=== PATIENT | male | born 1980 | race Caucasian/White ===

== ENCOUNTER 2017-07-15 21:17 | Inpatient (IN) | payer OTHER ==
[2017-07-15 22:04] VITALS: BMI 23.3
--- NOTE | 2017-07-15 22:11 | HP ---
CIWA Score - CIWA Score Nausea/Vomitin-Mild Nausea/No Vomiting Muscle Tremors: 4-Moderate,w/Arms Extend Anxiety: 4-Mod. Anxious/Guarded Agitation: 4-Moderately Restless Paroxysmal Sweats: 1-Minimal Palms Moist Orientation: 1-Uncertain about Date Tacttile Disturbances: 0-None Auditory Disturbances: 0-None Visual Disturbances: 0-None Headache: 1-Very Mild CIWA-Ar Total Score: 16 Admission ROS BHS - HPI Chief Complaint: WITHDRAWAL SX Allergies/Adverse Reactions: Allergies Allergy/AdvReac Type Severity Reaction Status Date / Time Fish Containing Products AdvReac Verified 07/15/17 22:11 History of Present Illness: 37 YEARS OLD MALE WITH LONG HISTORY OF ALCOHOL COCAINE NICOTINE DEPENDENCE HAS ASTHMA, RIGHT EYE BLINDNESS, AND DEPRESSION IS ADMITTED TO DETOX Exam Limitations: No Limitations - Ebola screening Have you traveled outside of the country in the last 21 days: No Have you had contact with anyone from an Ebola affected area: No Have you been sick,other than usual withdrawal symptoms: No Do you have a fever: No - Review of Systems Constitutional: Loss of Appetite, Changes in sleep, Unintentional Wgt. Loss, Unexplained wgt Loss EENT: reports: Blurred Vision (RIGHT EYE BLIDNESS) Respiratory: reports: No Symptoms reported, SOB with Exertion Cardiac: reports: No Symptoms Reported GI: reports: Nausea, Poor Appetite, Poor Fluid Intake, Indigestion, Abdominal cramping : reports: No Symptoms Reported Musculoskeletal: reports: Back Pain, Joint Pain, Muscle Pain, Neck Pain Integumentary: reports: Change in Color (IV COCAINE BOTH ARMS) Neuro: reports: Tremors Endocrine: reports: No Symptoms Reported Hematology: reports: No Symptoms Reported Psychiatric: reports: Judgement Intact, Anxious, Depressed Other Systems: Reviewed and Negative Patient History - Patient Medical History Hx Anemia: No Hx Asthma: Yes Hx Chronic Obstructive Pulmonary Disease (COPD): No Hx Cancer: No Hx Cardiac Disorders: No Hx Congestive Heart Failure: No Hx Hypertension: No Hx Hypercholesterolemia: No Hx Pacemaker: No HX Cerebrovascular Accident: No Hx Seizures: No Hx Dementia: No Hx Diabetes: No Hx Gastrointestinal Disorders: No Hx Liver Disease: No Hx Genitourinary Disorders: No Hx Sexually Transmitted Disorders: No Hx Renal Disease (ESRD): No Hx Thyroid Disease: No Hx Human Immunodeficiency Virus (HIV): No Hx Hepatitis C: Yes Hx Depression: Yes Hx Suicide Attempt: No Hx Bipolar Disorder: No Hx Schizophrenia: No - Patient Surgical History Past Surgical History: Yes Hx Neurologic Surgery: No Hx Cataract Extraction: No Hx Cardiac Surgery: No Hx Lung Surgery: No Hx Breast Surgery: No Hx Breast Biopsy: No Hx Abdominal Surgery: Yes (2010) Hx Appendectomy: Yes (2011) Hx Cholecystectomy: No Hx Genitourinary Surgery: No Hx Orthopedic Surgery: No Anesthesia Reaction: No - PPD History Previous Implant?: Yes Documented Results: Negative w/o proof Implanted On Prior R Admission?: No PPD to be Administered?: Yes - Smoking Cessation Smoking history: Current every day smoker Have you smoked in the past 12 months: Yes Aproximately how many cigarettes per day: 40 Cigars Per Day: 0 Hx Chewing Tobacco Use: No Initiated information on smoking cessation: Yes 'Breaking Loose' booklet given: 07/15/17 - Substance & Tx. History Hx Alcohol Use: Yes Hx Substance Use: Yes Substance Use Type: Alcohol, Cocaine, Heroin Hx Substance Use Treatment: Yes (2015) - Substances Abused Alcohol Route: Oral Frequency: Daily Amount used: [id number] Age of first use: 16 Date of Last Use: 07/14/17 Cocaine Route: Smoking Frequency: Daily Amount used: 200$ Age of first use: 31 Date of Last Use: 07/15/17 Family Disease History - Family Disease History Family Disease History: Diabetes: Father (), Brother, Sister, Heart Disease: Father, Mother, Other: Father Admission Physical Exam BHS - Vital Signs Vital Signs: Vital Signs - 24 hr 07/15/17 22:02 Temperature 97.0 F L Pulse Rate 55 L Respiratory 20 Rate Blood Pressure 109/61 - Physical General Appearance: Yes: Appropriately Dressed, Mild Distress, Thin, Tremorous, Irritable, Sweating, Anxious HEENTM: Yes: Hearing grossly Normal, Normal ENT Inspection, Normocephalic, Normal Voice Respiratory: Yes: Chest Non-Tender, Lungs Clear, Normal Breath Sounds, No Respiratory Distress, No Accessory Muscle Use Neck: Yes: Supple, Trachea in good position Breast: Yes: Breasts Symetrical Cardiology: Yes: Regular Rhythm, S1, S2, Bradycardia Abdominal: Yes: Non Tender, Soft, Decreased BS Genitourinary: Yes: Within Normal Limits Back: Yes: Normal Inspection Musculoskeletal: Yes: full range of Motion, Gait Steady, Back pain, Muscle Pain Extremities: Yes: Normal Inspection, Normal Range of Motion, Non-Tender, Tremors Neurological: Yes: Alert, Motor Strength 5/5, Normal Response, Depressed Affect Integumentary: Yes: Warm, Track [place] (BOTH ELBOWS IV COCAINE) Lymphatic: Yes: Within Normal Limits - Diagnostic (1) Alcohol dependence with uncomplicated withdrawal Current Visit: Yes Status: Acute (2) Cocaine dependence, uncomplicated Current Visit: Yes Status: Chronic (3) Asthma Current Visit: Yes Status: Chronic Qualifiers: Asthma severity: mild Asthma persistence: intermittent Asthma complication type: with status asthmaticus Qualified Code(s): J45.22 - Mild intermittent asthma with status asthmaticus; J45.22 - Mild intermittent asthma with status asthmaticus; J45.22 - Mild intermittent asthma with status asthmaticus (4) Nicotine dependence Current Visit: Yes Status: Acute Qualifiers: Nicotine product type: cigarettes Substance use status: in withdrawal Qualified Code(s): F17.213 - Nicotine dependence, cigarettes, with withdrawal; F17.213 - Nicotine dependence, cigarettes, with withdrawal (5) Weight loss Current Visit: Yes Status: Acute (6) GERD (gastroesophageal reflux disease) Current Visit: Yes Status: Chronic Qualifiers: Esophagitis presence: without esophagitis Qualified Code(s): K21.9 - Gastro-esophageal reflux disease without esophagitis; K21.9 - Gastro- esophageal reflux disease without esophagitis; K21.9 - Gastro-esophageal reflux disease without esophagitis (7) Hepatitis C carrier Current Visit: Yes Status: Chronic (8) Chronic back pain Current Visit: Yes Status: Chronic Qualifiers: Back pain location: low back pain Back pain laterality: bilateral Sciatica presence: without sciatica Qualified Code(s): M54.5 - Low back pain; M54.5 - Low back pain; G89.29 - Other chronic pain; G89.29 - Other chronic pain (9) Depression (emotion) Current Visit: Yes Status: Suspected Qualifiers: Depression Type: dysthymia Qualified Code(s): F34.1 - Dysthymic disorder; F34.1 - Dysthymic disorder; F34.1 - Dysthymic disorder Cleared for Admission [facility] - Detox or Rehab [facility] Level of Care: Medically Managed Detox Regimen/Protocol: Librium [facility] Breath Alcohol Content Breath Alcohol Content: 0 Urine Drug Screen - Results Drug Screen Negative: No Urine Drug Screen Results: FELIX-Cocaine, MTD-Methadone
[2017-07-15] MEDS ORDERED: diphenhydrAMINE HCL 50 MG CAPSULE PO PRN (22:22)
[2017-07-15] MEDS ORDERED: LOPERAMIDE HCL 2 MG CAPSULE PO PRN (22:22)
[2017-07-15] MEDS ORDERED: P-EPHED 60MG/TRIPROLIDI 2.5MG TABLET PO PRN (22:22)
[2017-07-15] MEDS ORDERED: ACETAMINOPHEN 325 MG TABLET (FP) PO PRN (22:22)
[2017-07-15] MEDS ORDERED: NICOTINE POLACRILEX 4 MG GUM BC PRN (22:22)
[2017-07-15] MEDS ORDERED: MAGNESIUM CITRATE 300 ML BOTTLE PO PRN (22:22)
[2017-07-15] MEDS ORDERED: MENTHOL/PHENOL 1 EACH UD MM PRN (22:22)
[2017-07-15] MEDS ORDERED: chlordiazePOXIDE HCL 25 MG CAPSULE PO PRN (22:22)
[2017-07-15] MEDS ORDERED: MAGNESIUM HYDROX 2400MG/30ML ORAL SUSPENSION 30 ML CUP PO PRN (22:22)
[2017-07-15] MEDS ORDERED: MAG HYDROX/AL HYDROX/SIMETH 30 ML UNIT-DOSE CUP PO PRN (22:22)
[2017-07-15] MEDS ORDERED: guaiFENesin/D-METHORPHAN HB 10 ML UNIT-DOSE CUPS PO PRN (22:22)
[2017-07-15] MEDS ORDERED: METHOCARBAMOL 500 MG TABLET PO PRN (22:26)
[2017-07-15] MEDS ORDERED: ALBUTEROL SO4 18 GM HFA INHALER IH PRN (22:26)
[2017-07-15] MEDS: chlordiazePOXIDE HCL 25 MG CAPSULE PO SCH (23:41)
[2017-07-15] MEDS: LIDOCAINE PATCH REMOVAL MC SCH (23:43)
[2017-07-16] MEDS: chlordiazePOXIDE HCL 25 MG CAPSULE PO SCH ×4 (05:38→23:34)
[2017-07-16] MEDS ORDERED: METHADONE HCL 10 MG TABLET PO SCH (09:00)
[2017-07-16 09:35] LABS: MCHC 33.5 g/dl (32.0-35.9); MEAN CELL VOLUME 98.2 fl (80-96); MEAN PLT VOLUME 7.7 fl (7.5-11.1); PLATELET COUNT 190 K/MM3 (134-434); RDW 14.1 % (11.9-15.9); WHITE BLOOD COUNT 8.4 K/mm3 (4.0-10.0)
[2017-07-16] MEDS ORDERED: METHADONE HCL 10 MG TABLET ONE (09:54)
[2017-07-16] MEDS ORDERED: METHADONE HCL 40 MG DISPERSABLE TABLET ONE (09:55)
[2017-07-16 09:56] LABS: ALBUMIN 3.3 g/dl (3.4-5.0); ALK PHOS 52 U/L (45-117); ANION GAP 4 (8-16); BILIRUBIN,TOTAL 0.4 mg/dL (0.2-1.0); CALCIUM 8.2 mg/dL (8.5-10.1); CO2 32 mmol/L (21-32); GLUCOSE,RANDOM 112 mg/dL (74-106); SGOT/AST 18 U/L (15-37); SGPT/ALT 24 U/L (12-78); TOT PROT 6.3 g/dl (6.4-8.2)
[2017-07-16] MEDS: RANITIDINE HCL 150 MG TABLET (FP) PO SCH ×2 (10:43→23:35)
[2017-07-16] MEDS: PRENATAL VITAMINS W/ FOLIC ACID TABLET (FP) PO SCH (10:43)
[2017-07-16] MEDS: NICOTINE 21 MG/24 HOURS TOPICAL PATCH TD SCH (10:44)
[2017-07-16] MEDS: METHADONE 40 MG, METHADONE 20 MG PO SCH (10:44)
[2017-07-16] MEDS: LIDOCAINE 5% TOPICAL PATCH TP SCH (10:45)
[2017-07-16 11:40] LABS: HIV 1 & 2 AB NEGATIVE; HIV 1 AGp24 NEGATIVE
--- NOTE | 2017-07-16 11:51 | EKG ---
Test Reason : Blood Pressure : / mmHG Vent. Rate : 053 BPM Atrial Rate : 053 BPM P-R Int : 156 ms QRS Dur : 108 ms QT Int : 466 ms P-R-T Axes : 052 008 027 degrees QTc Int : 437 ms SINUS BRADYCARDIA OTHERWISE NORMAL ECG NO PREVIOUS ECGS AVAILABLE Confirmed by LEVI VARNER, ITZEL ([id number]) on 07/16/2017 11:51:20 AM Referred By: Confirmed By:ITZEL SIMS MD
--- NOTE | 2017-07-16 11:52 | CONSULT ---
[facility] Psychiatric Consult - Data Date of interview: 07/16/17 Admission source: [facility] Identifying data: Mr Medina is a 37 years old single male, fatherof a 7 years old daughter, unemployed on SSI, homeless Substance Abuse History: Reports history of alcohol and cocaine use. He started drinking alcohol at age 16 and smoking crack cocaine at 31, consumes 2 fifths of vodka and $200 worth of crack cocaine daily. Last drank alcohol on 07/14/17 & smoked crack cocaine on 07/15/17 Medical History: Significant for Asthma, Hep C, blindness right eye and history of surgery for removal of appendix. smokes cigarettes 2ppd Psychiatric History: Denies history of previous psychiatric treatment Physical/Sexual Abuse/Trauma History: Denies history of verbal, physical and sexual abuse as well as DV relationship Additional Comment: Denies criminal history Mental Status Exam - Mental Status Exam Alert and Oriented to: Time, Place, Person Cognitive Function: Fair Patient Appearance: Well Groomed Mood: Hopeful, Euthymic Affect: Appropriate Patient Behavior: Sedated (mildly), Cooperative Speech Pattern: Clear Voice Loudness: Normal Thought Process: Intact, Goal Oriented Thought Disorder: Not Present Hallucinations: Denies Suicidal Ideation: Denies Homicidal Ideation: Denies Insight/Judgement: Poor Sleep: Fair Appetite: Good Muscle strength/Tone: Normal Gait/Station: Normal Psychiatric Findings - Problem List ([place] 1, 2,3) (1) Alcohol dependence with uncomplicated withdrawal Current Visit: Yes Status: Acute (2) Cocaine dependence, uncomplicated Current Visit: Yes Status: Chronic (3) Nicotine dependence Current Visit: Yes Status: Acute Qualifiers: Nicotine product type: cigarettes Substance use status: in withdrawal Qualified Code(s): F17.213 - Nicotine dependence, cigarettes, with withdrawal; F17.213 - Nicotine dependence, cigarettes, with withdrawal (4) Blind right eye Current Visit: Yes Status: Acute (5) Asthma Current Visit: Yes Status: Chronic Qualifiers: Asthma severity: mild Asthma persistence: intermittent Asthma complication type: with status asthmaticus Qualified Code(s): J45.22 - Mild intermittent asthma with status asthmaticus; J45.22 - Mild intermittent asthma with status asthmaticus; J45.22 - Mild intermittent asthma with status asthmaticus (6) Chronic back pain Current Visit: Yes Status: Chronic Qualifiers: Back pain location: low back pain Back pain laterality: bilateral Sciatica presence: without sciatica Qualified Code(s): M54.5 - Low back pain; M54.5 - Low back pain; G89.29 - Other chronic pain; G89.29 - Other chronic pain (7) GERD (gastroesophageal reflux disease) Current Visit: Yes Status: Chronic Qualifiers: Esophagitis presence: without esophagitis Qualified Code(s): K21.9 - Gastro-esophageal reflux disease without esophagitis; K21.9 - Gastro- esophageal reflux disease without esophagitis; K21.9 - Gastro-esophageal reflux disease without esophagitis (8) Hepatitis C carrier Current Visit: Yes Status: Chronic - Initial Treatment Plan Initial Treatment Plan: Continue inpatient detoxification
[2017-07-16] MEDS ORDERED: PNEUMOC 13-VAL CONJ-DIP CRM/PF 0.5 ML DISP.SYRIN IM ONE (12:00)
[2017-07-16] MEDS ORDERED: FLU VACCINE QUAD 60 MCG/0.5 ML (MDV 17-18) IM ONE (12:00)
[2017-07-16] MEDS ORDERED: PNEUMOCOCCAL 23 VACCINE 0.5 ML VIAL IM ONE (12:00)
--- NOTE | 2017-07-16 13:30 | PN ---
S CIWA - CIWA Score Nausea/Vomitin Muscle Tremors: None Anxiety: 3 Agitation: 2 Paroxysmal Sweats: 3 Orientation: 0-Oriented Tacttile Disturbances: 0-None Auditory Disturbances: 1-Very Mild Visual Disturbances: 3-Moderate Sensitivity Headache: 0-None Present CIWA-Ar Total Score: 17 BHS Progress Note (SOAP) Subjective: Interrupted Sleep, Sweating, Body Aches, Diarrhea, Vomiting. Objective: PT. A & O X 3. NO ACUTE DISTRESS. 07/16/17 13:27 Vital Signs Temperature 97.3 F L 07/16/17 09:47 Pulse Rate 68 07/16/17 09:47 Respiratory Rate 18 07/16/17 09:47 Blood Pressure 100/68 07/16/17 09:47 O2 Sat by Pulse Oximetry (%) Laboratory Tests 07/16/17 07/16/17 07/16/17 07:00 07:00 07:00 WBC 8.4 RBC 3.68 L Hgb 12.1 Hct 36.2 MCV 98.2 H MCH 33.0 MCHC 33.5 RDW 14.1 Plt Count 190 MPV 7.7 Sodium 142 Potassium 3.8 Chloride 106 Carbon Dioxide 32 Anion Gap 4 L BUN 15 Creatinine 1.0 Creat Clearance w eGFR > 60 Random Glucose 112 H Calcium 8.2 L Total Bilirubin 0.4 AST 18 ALT 24 Alkaline Phosphatase 52 Total Protein 6.3 L Albumin 3.3 L RPR Titer Nonreactive HIV 1&2 Antibody Screen HIV P24 Antigen 07/16/17 07:00 WBC RBC Hgb Hct MCV MCH MCHC RDW Plt Count MPV Sodium Potassium Chloride Carbon Dioxide Anion Gap BUN Creatinine Creat Clearance w eGFR Random Glucose Calcium Total Bilirubin AST ALT Alkaline Phosphatase Total Protein Albumin RPR Titer HIV 1&2 Antibody Screen Negative HIV P24 Antigen Negative LABS NOTED. UA RESULTS PENDING. 07/16/17 13:29 Assessment: 07/16/17 13:28 WITHDRAWAL SYMPTOMS. Plan: CONTINUE DETOX. PRN IMMODIUM FOR DIARRHEA. INCREASE DAILY PO FLUID INTAKE.
[2017-07-16] MEDS: LIDOCAINE PATCH REMOVAL MC SCH (23:34)
[2017-07-16] MEDS: THIAMINE HCL 100 MG TABLET (FP) PO SCH (23:35)
[2017-07-17] MEDS ORDERED: METHADONE HCL 10 MG TABLET ONE (03:31)
[2017-07-17] MEDS ORDERED: METHADONE HCL 40 MG DISPERSABLE TABLET ONE (03:32)
[2017-07-17] MEDS: chlordiazePOXIDE HCL 25 MG CAPSULE PO SCH ×2 (06:29→10:48)
[2017-07-17] MEDS: METHADONE 40 MG, METHADONE 20 MG PO SCH (06:51)
[2017-07-17] MEDS: NICOTINE 21 MG/24 HOURS TOPICAL PATCH TD SCH (10:47)
[2017-07-17] MEDS: RANITIDINE HCL 150 MG TABLET (FP) PO SCH ×2 (10:47→22:46)
[2017-07-17] MEDS: PRENATAL VITAMINS W/ FOLIC ACID TABLET (FP) PO SCH (10:47)
[2017-07-17] MEDS: LIDOCAINE 5% TOPICAL PATCH TP SCH (10:48)
--- NOTE | 2017-07-17 14:12 | PN ---
[facility] CIWA - CIWA Score Nausea/Vomitin-No Nausea/No Vomiting Muscle Tremors: 3 Anxiety: 4-Mod. Anxious/Guarded Agitation: 2 Paroxysmal Sweats: No Perspiration Orientation: 0-Oriented Tacttile Disturbances: 0-None Auditory Disturbances: 2-Mild Harshness/Frighten Visual Disturbances: 3-Moderate Sensitivity Headache: 0-None Present CIWA-Ar Total Score: 14 BHS Progress Note (SOAP) Subjective: Interrupted sleep, Tremors, Anxious. Objective: PT. A & O X 3, OBSERVED AMBULATING ON UNIT. NO ACUTE DISTRESS. PT. DENIES CHEST PAIN. 07/17/17 14:10 Vital Signs Temperature 98.9 F 07/17/17 13:13 Pulse Rate 54 L 07/17/17 13:13 Respiratory Rate 18 07/17/17 13:13 Blood Pressure 106/68 07/17/17 13:13 O2 Sat by Pulse Oximetry (%) Laboratory Tests 07/16/17 07/16/17 07/16/17 07:00 07:00 07:00 WBC 8.4 RBC 3.68 L Hgb 12.1 Hct 36.2 MCV 98.2 H MCH 33.0 MCHC 33.5 RDW 14.1 Plt Count 190 MPV 7.7 Sodium 142 Potassium 3.8 Chloride 106 Carbon Dioxide 32 Anion Gap 4 L BUN 15 Creatinine 1.0 Creat Clearance w eGFR > 60 Random Glucose 112 H Calcium 8.2 L Total Bilirubin 0.4 AST 18 ALT 24 Alkaline Phosphatase 52 Total Protein 6.3 L Albumin 3.3 L RPR Titer Nonreactive HIV 1&2 Antibody Screen HIV P24 Antigen 07/16/17 07:00 WBC RBC Hgb Hct MCV MCH MCHC RDW Plt Count MPV Sodium Potassium Chloride Carbon Dioxide Anion Gap BUN Creatinine Creat Clearance w eGFR Random Glucose Calcium Total Bilirubin AST ALT Alkaline Phosphatase Total Protein Albumin RPR Titer HIV 1&2 Antibody Screen Negative HIV P24 Antigen Negative LABS NOTED. UA RESULTS PENDING. 07/17/17 14:11 Assessment: 07/17/17 14:11 WITHDRAWAL SYMPTOMS. Plan: CONTINUE DETOX.
--- NOTE | 2017-07-17 15:44 | PN ---
[facility] Progress Note Note: Patient reporting that current Detox symptoms minimal and that he feels well overall. At patient's request, current Detox regimen (Librium) modified so that he may discharged on 07/18/2017. Clarisa Oates NP
[2017-07-17] MEDS ORDERED: chlordiazePOXIDE 5 MG CAPSULE PO SCH ×2 (17:00→23:00)
[2017-07-17] MEDS: THIAMINE HCL 100 MG TABLET (FP) PO SCH (22:46)
[2017-07-17] MEDS: LIDOCAINE PATCH REMOVAL MC SCH (22:46)
[2017-07-17] MEDS: chlordiazePOXIDE HCL 10 MG CAPSULE PO SCH (22:47)
[2017-07-18] MEDS ORDERED: METHADONE HCL 10 MG TABLET ONE (03:59)
[2017-07-18] MEDS ORDERED: METHADONE HCL 40 MG DISPERSABLE TABLET ONE (04:00)
[2017-07-18] MEDS: chlordiazePOXIDE HCL 10 MG CAPSULE PO SCH (06:18)
[2017-07-18] MEDS: METHADONE 40 MG, METHADONE 20 MG PO SCH (06:18)
[2017-07-18 07:04] VITALS: BP 104/69; PULSE 51; TEMP 97.2
--- NOTE | 2017-07-18 16:30 | DS ---
[facility] Detox Discharge Summary Admission Date: 07/15/17 Discharge Date: 07/18/17 - History Present History: Alcohol Dependence, Cocaine Dependence Additional Comments: PATIENT GOING HOME. PATIENT WILL RETURN TO [facility] ([place]) FOR AFTERCARE. PATIENT WAS DISCHARGED FROM DETOX UNIT IN STABLE MEDICAL CONDITION. Pertinent Past History: Asthma, GERD, Hep C, Blind in Right Eye, nicotine dependence, Chronic Back Pain , Depression. - Physical Exam Results Vital Signs: Vital Signs Temperature 97.2 F L 07/18/17 07:03 Pulse Rate 51 L 07/18/17 07:03 Respiratory Rate 18 07/18/17 07:03 Blood Pressure 104/69 07/18/17 07:03 O2 Sat by Pulse Oximetry (%) Pertinent Admission Physical Exam Findings: WITHDRAWAL SYMPTOMS. Laboratory Tests 07/16/17 07/16/17 07/16/17 07:00 07:00 07:00 WBC 8.4 RBC 3.68 L Hgb 12.1 Hct 36.2 MCV 98.2 H MCH 33.0 MCHC 33.5 RDW 14.1 Plt Count 190 MPV 7.7 Sodium 142 Potassium 3.8 Chloride 106 Carbon Dioxide 32 Anion Gap 4 L BUN 15 Creatinine 1.0 Creat Clearance w eGFR > 60 Random Glucose 112 H Calcium 8.2 L Total Bilirubin 0.4 AST 18 ALT 24 Alkaline Phosphatase 52 Total Protein 6.3 L Albumin 3.3 L RPR Titer Nonreactive HIV 1&2 Antibody Screen HIV P24 Antigen 07/16/17 07:00 WBC RBC Hgb Hct MCV MCH MCHC RDW Plt Count MPV Sodium Potassium Chloride Carbon Dioxide Anion Gap BUN Creatinine Creat Clearance w eGFR Random Glucose Calcium Total Bilirubin AST ALT Alkaline Phosphatase Total Protein Albumin RPR Titer HIV 1&2 Antibody Screen Negative HIV P24 Antigen Negative LABS NOTED. - Treatment Hospital Course: Detox Protocol Followed, Detoxed Safely, Responded well, Discharged Condition Good Patient has Accepted a Rehab Referral to: NO. PT RETURNING TO [facility] ([place], [place]). - Medication Discharge Medications: Ambulatory Orders NK [No Known Home Medication] 07/15/17 - Diagnosis (1) Alcohol dependence with uncomplicated withdrawal Status: Acute (2) Blind right eye Status: Chronic (3) Nicotine dependence Status: Chronic Qualifiers: Nicotine product type: cigarettes Substance use status: in withdrawal Qualified Code(s): F17.213 - Nicotine dependence, cigarettes, with withdrawal; F17.213 - Nicotine dependence, cigarettes, with withdrawal (4) Weight loss Status: Acute (5) Asthma Status: Chronic Qualifiers: Asthma severity: mild Asthma persistence: intermittent Asthma complication type: with status asthmaticus Qualified Code(s): J45.22 - Mild intermittent asthma with status asthmaticus; J45.22 - Mild intermittent asthma with status asthmaticus; J45.22 - Mild intermittent asthma with status asthmaticus (6) Chronic back pain Status: Chronic Qualifiers: Back pain location: low back pain Back pain laterality: bilateral Sciatica presence: without sciatica Qualified Code(s): M54.5 - Low back pain; M54.5 - Low back pain; G89.29 - Other chronic pain; G89.29 - Other chronic pain (7) Cocaine dependence, uncomplicated Status: Chronic (8) GERD (gastroesophageal reflux disease) Status: Chronic Qualifiers: Esophagitis presence: without esophagitis Qualified Code(s): K21.9 - Gastro-esophageal reflux disease without esophagitis; K21.9 - Gastro- esophageal reflux disease without esophagitis; K21.9 - Gastro-esophageal reflux disease without esophagitis (9) Hepatitis C carrier Status: Chronic (10) Depression (emotion) Status: Suspected Qualifiers: Depression Type: dysthymia Qualified Code(s): F34.1 - Dysthymic disorder; F34.1 - Dysthymic disorder; F34.1 - Dysthymic disorder - AMA Did Patient Leave Against Medical Advice: No
[2017-07-18] MEDS ORDERED: chlordiazePOXIDE HCL 10 MG CAPSULE PO SCH (23:00)
== END 2017-07-18 09:49 | disposition home or self-care (01) | DRG 897 ==
LOC: YASAS 21:17 → Y3N 22:41
PROVIDERS: ADMIT Internal Medicine; ATTEND Internal Medicine
PROC: HZ2ZZZZ Detoxification Services for Substance Abuse Treatment (ICD-10-PCS; principal; 2017-07-15)
DX: F19.230 Other psychoactive substance dependence with withdrawal, uncomplicated (principal); F14.20 Cocaine dependence, uncomplicated; J45.22 Mild intermittent asthma with status asthmaticus; F10.230 Alcohol dependence with withdrawal, uncomplicated; F17.213 Nicotine dependence, cigarettes, with withdrawal; F34.1 Dysthymic disorder; H54.40 Blindness, one eye, unspecified eye; M54.5 Low back pain; G89.29 Other chronic pain; K21.9 Gastro-esophageal reflux disease without esophagitis; B18.2 Chronic viral hepatitis C; R00.1 Bradycardia, unspecified; Z87.898 Personal history of other specified conditions; Z91.013 Allergy to seafood
CPT/HCPCS: 36415; 80053; 85027; 86593; 87389; 93005; 93010

== ENCOUNTER 2019-05-11 15:23 | Inpatient (IN) | payer OTHER | END 2019-05-16 09:48 | disposition home or self-care (01) | LOC: Y6N 05-12 01:58 → YASAS 15:23 ==

== ENCOUNTER 2020-07-20 11:46 | Inpatient (IN) | payer OTHER ==
--- OUTSIDE RECORDS SUMMARY | 2020-07-20 12:12 | XMS ---
:1980 [facility] Care Team Providers Name Role Phone MD LALO Unavailable Unavailable George Concepcion MD Unavailable Unavailable George Concepcion MD Unavailable Unavailable Re-disclosure Warning The records that you are about to access may contain information from federally- assisted alcohol or drug abuse programs. If such information is present, then the following federally mandated warning applies: This information has been disclosed to you from records protected by federal confidentiality rules (42 CFR part 2). The federal rules prohibit you from making any further disclosure of this information unless further disclosure is expressly permitted by the written consent of the person to whom it pertains or as otherwise permitted by 42 CFR part 2. A general authorization for the release of medical or other information is NOT sufficient for this purpose. The Federal rules restrict any use of the information to criminally investigate or prosecute any alcohol or drug abuse patient.The records that you are about to access may contain highly sensitive health information, the redisclosure of which is protected by Article 27-F of the [facility] Public Health law. If you continue you may haveaccess to information: Regarding HIV / AIDS; Provided by facilities licensed or operated by the [facility] Office of Mental Health; or Provided by the [facility] Office for People With Developmental Disabilities. If such information is present, then the following [facility] mandated warning applies: This information has been disclosed to you from confidential records which are protected by state law. State law prohibits you from making any further disclosure of this information without the specific written consent of the person to whom it pertains, or as otherwise permitted by law. Any unauthorized further disclosure in violation of state law may result in a fine or snf sentence or both. A general authorization for the release of medical or other information is NOT sufficient authorization for further disclosure. Allergies and Adverse Reactions Type Description Substance Reaction Status Data Source(s ) Drug allergy No Known Allergies No Known Allergies [facility] Drug allergy No Known Allergies No Known Allergies [facility] Encounters Encounter Providers Location Date Indications Data Source(s ) Emergency Attender: [facility] 07/09/2019 Laci Concepcion MDAttender: 01:28:00 PM EDT P [facility] ERAdmitter: [facility] - 07/09/2019 Ovidio Kahn MD 04:14:00 PM EDT Patient discharged. Medications Medication Brand Start Product Dose Route Administrative Pharmacy [facility] Indications Reaction Description Data Name Date Form Instructions Instructions Source(s) Prednisone predni 20.0 Oral Nuvan ce 20 MG Oral SONE 2019 mg 20 mg, = 1 tab, Oral, Daily, X 7 day(s), # 7 tab, 0 Refill(s), Pharmacy: [facility], 1 tab Oral Daily,x7 day(s) Health - Tablet 20 mg 04:02: [place] predniSONE oral 00 PM Hospital 20 mg oral tablet EDT Center tablet ProAir HFA [id number] 07/09/ Aerosol 2.0 Inhala [place] 90 mcg/inh 2019 tion 2 p uff(s), INH, q4hr, # 8.5 gm, 0 Refill(s), as needed for wheezing, Pharmacy: [facility], 2 puff(s) INH q4hr,PRN:as needed for wheezing Health - inhalation 04:02: [place] aerosol 00 PM [facility] EDT Center Clarithromy clarit 07/09/ 500.0 Oral Nuv [place] debra 500 MG hromyc 2019 mg 50 0 mg, = 1 tab, Oral, q12hr (specified start), X 10 day(s), # 20 tab, 0 Refill(s), Pharmacy: [facility], 1 tab Oral q12hr (specified start),x10 day(s) Health - Oral Tablet in 500 04:02: [place] [facility] clarithromy mg 00 PM [facility] debra 500 mg oral EDT Center oral tablet tablet Insurance Providers Payer name Policy type Policy ID Covered Covered constitution party's Policy P sal / Coverage constitution party ID relationship to Almaraz Inf ormation type [facility] [id number] 71 MEDICARE MEDICAID [id number] SP [id number] [place] MEDICARE [id number] SP [id number] [facility] [id number] 71 MEDICARE Results ID Date Data Source [id number] 07/04/2020 12:00:00 AM EDT [facility] Name Value Range Interpretation Code Description Data Sulma rce(s) Supporting Document(s ) 2019-nCoV [facility] RNA XXX LAMBERT+probe- Imp [facility] reported by [facility] ID Date Data Source [id number] 07/09/2019 03:22:00 PM EDT [facility] Name Value Range Interpretation Description Data Sup porting Code Source(s) Document(s ) UA Color Yellow NO [facility] UA Appear Clear NO [facility] UA pH 5.0-8.0 NO [facility] UA Spec Grav 1.022 1.005-1.030 NO [facility] UA Glucose Negative NO [facility] UA Ketones Negative NO [facility] UA Urobilinogen 0.2-1.0 NO [facility] UA Bili Negative NO [facility] UA Blood Negative NO [facility] UA Protein Negative NO [facility] UA Nitrite Negative NO [facility] UA Leuk Est Negative NO [facility] ID Date Data Source [id number] 07/11/2019 10:00:00 AM EDT [facility] 02/19/ Microbiology - Respiratory CulturesPROCE DURE: Culture,Throat, Strep ScreenSOURCE: Swab BODY S ITE:COLLECTED DATE/TIME: 07/09/2019 14:48 EDT RECEIVED DATE/TIME: 2018 20:36 EDTSTART DATE/TIME: 07/09/2019 20:36 EDT FREE TEXT SOURC E:ORDERING PHYSICIAN: Christi FloresFINAL REPORTSFinal Report []Reported Date/Time: 07/11/2019 10:00 EDTCulture negative for Group A Streptoc occusPRELIMINARY REPORTSPreliminary Report []Reported Date/Time: 07/10/2019 11:49 EDTThis culture is in progress and is being reincubated Name Value Range Interpretation Code Description Data Sulma rce(s) Supporting Document(s ) ID Date Data Source [id number] 07/09/2019 03:32:00 PM EDT [facility] Name Value Range Interpretation Description Data Sup porting Code Source(s) Document(s ) Lactic 2.0 0.9-2.0 NO [place] Acid Lvl mmol/L [facility] ID Date Data Source [id number] 07/09/2019 03:31:00 PM T [facility] Name Value Range Interpretation Description Data Sup porting Code Source(s) Document(s ) Troponin- <0.01 0.02-0.05 LO [place] I ng/mL [facility] ID Date Data Source [id number] 07/09/2019 03:28:00 PM T [facility] Added by Discern Rule GLB_ADD_GFR_CMP Name Value Range Interpretation Code Description Data Sulma rce(s) Supporting Document(s ) eGFR-AA >60 >=60 NO [facility] mL/min/[address] eGFR-LAMBERT >60 >=60 NO [facility] mL/min/[address] ID Date Data Source [id number] 07/09/2019 03:28:00 PM T [facility] Name Value Range Interpretation Description Data Sup porting Code Source(s) Document(s ) Magnesium 2.2 mg/dL 1.6-2.5 NO [facility] ID Date Data Source [id number] 07/09/2019 03:28:00 PM [facility] Name Value Range Interpretation Code Description Data Sulma rce(s) Supporting Document(s ) Lipase Lvl 21 IU/L 10-59 NO [facility] ID Date Data Source [id number] 07/09/2019 03:28:00 PM EDT [facility] Name Value Range Interpretation Description Data Sup porting Code Source(s) Document(s ) Glucose Lvl 135 65-99 [place] mg/dL [facility] BUN 13.0 7.0-21.0 NO [place] mg/dL [facility] Creatinine 1.09 0.70-1.2 NO [place] mg/dL 0 [facility] BUN/Creat 11.9 7.0-29.0 NO [place] Ratio ratio [facility] Sodium Lvl 138 136-146 NO [place] mmol/L [facility] Potassium Lvl 4.2 3.5-5.1 NO [place] mmol/L [facility] Chloride 100 98-109 NO [place] mmol/L [facility] CO2 32 17-33 NO [place] mmol/L [facility] AGAP 6 5-15 NO [facility] Calcium Lvl 8.7 8.3-10.2 NO [place] mg/dL [facility] Total Protein 6.8 6.0-8.3 NO [place] gm/dL [facility] Albumin Lvl 3.6 3.7-5.3 LO [place] gm/dL [facility] Glob 3.2 2.0-4.5 NO [place] gm/dL [facility] A/G Ratio 1.1 1.0-2.2 NO [place] ratio [facility] Bili Total 0.2 0.4-1.1 LO [place] mg/dL [facility] Alk Phos 57 IU/L 30-125 NO [facility] AST 26 IU/L 10-35 NO [facility] ALT 23 IU/L 8-40 NO [facility] ID Date Data Source [id number] 07/09/2019 03:23:00 PM EDT [facility] Name Value Range Interpretation Code Description Data Sulma rce(s) Supporting Document(s ) Rapid Negative NO [facility] Strep [facility] Internal QC is Valid.07/09/2019 15:22:59 EDTMDTest methodology is Lateral flow immunoassay for the qualitative detectio n of Strep. A antigen. Findings must be correlated with clinical history. Negati ve results and persistence of clinical symptoms should be followed up with cult ure. ID Date Data Source [id number] 07/09/2019 03:04:00 PM EDT [facility] Name Value Range Interpretation Description Data Sup porting Code Source(s) Document(s ) Neut Auto 73.6 % 40.0-70.0 HI [facility] Lymph Auto 15.5 % 22.0-44.0 LO [facility] Assumption Auto 9.3 % 4.0-11.0 NO [facility] Eos Auto 1.5 % 0.0-8.0 NO [facility] Baso Auto 0.1 % 0.0-3.0 [facility] Neut 10.6 1.8-7.7 HI [place] Absolute x10(3)/[facility] Lymph 2.2 1.0-4.8 NO [place] Absolute x10(3)/[facility] Assumption 1.3 0.2-1.2 HI [place] Absolute x10(3)/[facility] Eos Absolute 0.2 0.0-0.9 NO [place] x10(3)/[facility] Baso 0.0 0.0-0.3 NO [place] Absolute x10(3)/[facility] ID Date Data Source [id number] 07/09/2019 03:04:00 PM EDT [facility] Name Value Range Interpretation Description Data Sup porting Code Source(s) Document(s ) WBC 14.5 4.5-11.0 HI [place] x10(3)/[facility] RBC 3.49 4.50-5.90 [place] x10(6)/[facility] Hgb 11.4 13.5-17.5 [facility] gm/dL [facility] Hct 33.8 % 41.0-53.0 [facility] MCV 97 fL 80-100 NO [facility] MCH 32.8 pg 26.0-34.0 NO [facility] MCHC 33.8 31.0-37.0 NO [facility] gm/dL [facility] RDW 14.2 % 11.5-14.5 NO [facility] Platelet 205 150-350 NO [facility] x10(3)/[facility] MPV 7.1 fL 7.4-10.4 [facility] Procedure Social History Code Duration Value Status Description Data Source(s ) Smoking 07/09/2019 Occasional completed Occasional tobacco [facility] Neocleus - 02:12:49 PM EDT tobacco smoker smoker (finding) [facility] (finding) [place] Vital Signs ID Date Data Source UNK Name Value Range Interpretation Code Description Data Source(s) Oral temperature 98.0 [degF] 96.4-99.1 Normal (applies to 98.0 [degF ] [email or web address] DegF non-numeric results) - [facility] Mean blood 72 mm[Hg] 72 mm[Hg] [facility] SpectrumDNA pressure by - [facility] Heart rate 72 bpm 60-100 bpm Normal (applies to 72 bpm [facility] Neocleus non-numeric results) - [facility] Respiratory rate 13 br/min 14-20 Below low normal 13 br/min [facility] br/min - [facility] Oxygen saturation 92 % 94-100 % 92 % [facility] Spectrum[employer] in Blood [facility] Postductal by Hospital Pulse oximetry Center Diastolic blood 51 mm[Hg] 60-90 mmHg 51 mm[Hg] [facility] ealth pressure - [facility] Systolic blood 115 mm[Hg] 90-130 mmHg Normal (applies to 115 mm[Hg] [facility] pressure non-numeric results) - [facility] Rectal 98.1 [degF] 97.3-100 Normal (applies to 98.1 [degF] [facility] temperature DegF non-numeric results) - [facility] Heart rate 62 bpm 60-100 bpm Normal (applies to 62 bpm [facility] non-numeric results) - [facility] Oxygen therapy [place] [facility] alth [Minimum Data - [place] Set] [facility] Center Oral temperature 98.8 [degF] 96.4-99.1 Normal (applies to 98.8 [degF ] [facility] DegF non-numeric results) - [facility] Respiratory rate 18 br/min 14-20 Normal (applies to 18 br/min [facility] br/min non-numeric results) - [facility] Oxygen saturation 96 % 94-100 % Normal (applies to 96 % [facility] in Blood non-numeric results) - [facility] Postductal by Hospital Pulse oximetry Center Heart rate 77 bpm 60-100 bpm Normal (applies to 77 bpm [facility] non-numeric results) - [facility] Diastolic blood 66 mm[Hg] 60-90 mmHg Normal (applies to 66 mm[Hg] [facility] pressure non-numeric results) - [facility] Systolic blood 115 mm[Hg] 90-130 mmHg Normal (applies to 115 mm[Hg] [facility] pressure non-numeric results) - [facility] Oral temperature 99.1 [degF] 96.4-99.1 Normal (applies to 99.1 [degF ] [facility] DegF non-numeric results) - [facility] Diastolic blood 60 mm[Hg] 60-90 mmHg Normal (applies to 60 mm[Hg] [facility] pressure non-numeric results) - [facility] Systolic blood 109 mm[Hg] 90-130 mmHg Normal (applies to 109 mm[Hg] [facility] pressure non-numeric results) - [facility] Respiratory rate 16 br/min 14-20 Normal (applies to 16 br/min [facility] br/min non-numeric results) - [facility] Oxygen therapy [place] [facility] al[facility] [Minimum Data - [place] Set] Hospital Center Oxygen saturation 96 % 94-100 % Normal (applies to 96 % [facility] in Blood non-numeric results) - [facility] Postductal by Hospital Pulse oximetry Center Body mass index 25.34 kg/m2 25.34 kg/m2 [email or web address] (BMI) [Ratio] - [facility] Body height 165 cm 165 cm [facility] - [facility] Body mass index 25.34 kg/m2 25.34 kg/m2 [facility] (BMI) [Ratio] - [facility] Body weight 69 kg 69 kg [facility] Measured - [facility] Patient Treatment Plan of Care Planned Activity Planned Date Details Description Data Source (s) ProAir HFA 90 mcg/inh 07/09/2019 04:02:00 [email or web address] - inhalation aerosol PM EDT [facility] Prednisone 20 MG Oral 07/09/2019 04:02:00 [facility] - Tablet PM [facility] Clarithromycin 500 MG Oral 07/09/2019 04:02:00 [email or web address]
--- NOTE | 2020-07-20 12:16 | BHS.RME ---
Substance Use & Tx History - Substance Use History Alcohol Substance amount: 4 gallons E&J Frequency of use: Daily Substance route: Oral Date of Last Use: 07/19/20 Heroin Substance amount: 10 bags Frequency of use: Daily Substance route: Inhalation (ex: sniffing or snorting) Date of Last Use: 07/18/20 (started age 23) Cocaine-Crack Substance amount: $200 Frequency of use: Daily Substance route: Smoking Date of Last Use: 07/20/20 (started age 23) Marijuana/Hashish Substance amount: 1/4 oz Frequency of use: Daily Substance route: Smoking Date of Last Use: 07/20/20 ( started age 10) Nicotine Substance amount: 10 ciggs Frequency of use: Daily Substance route: Smoking Date of Last Use: 07/20/20 (started age 12) Physical/Psych/Mental Status - Behavior General Behavior: Increased activity (restlessness, agitation) Eye Contact: Normal - Cooperativeness Cooperativeness: Cooperative - Thinking Thought Processes: Tight, Logical, Goal Directed - Physical Health Problems Is patient presently having any pain?: No Does patient presently have any injuries (include location): No Does patient currently have a fever: No Is patient : No CIWA Nausea/Vomitin Muscle Tremors: 5 Anxiety: 3 Agitation: 3 Paroxysmal Sweats: 4-Forehead w/Sweat Beads Orientation: 0-Oriented Tacttile Disturbances: 1-Very Mild Itch/Numbness Auditory Disturbances: 0-None Visual Disturbances: 0-None Headache: 2-Mild CIWA-Ar Total Score: 23
[2020-07-20 13:04] VITALS: BMI 24.7
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
[2020-07-20] MEDS ORDERED: ACETAMINOPHEN 325 MG TABLET (FP) PO PRN ×2 (13:29)
[2020-07-20] MEDS ORDERED: BISMUTH SUBSALICYLATE 262 MG/15 ML BTL PO PRN (13:29)
[2020-07-20] MEDS ORDERED: ONDANSETRON *ODT* 4 MG TABLET SL PRN (13:29)
[2020-07-20] MEDS ORDERED: LORazepam 1 MG TABLET PO PRN (13:29)
[2020-07-20] MEDS ORDERED: MAGNESIUM CITRATE 300 ML BOTTLE PO PRN (13:29)
[2020-07-20] MEDS ORDERED: METHOCARBAMOL 500 MG TABLET PO PRN (13:29)
[2020-07-20] MEDS ORDERED: MAGNESIUM HYDROX 2400MG/30ML ORAL SUSPENSION 30 ML CUP PO PRN (13:29)
[2020-07-20] MEDS ORDERED: MAG HYDROX/AL HYDROX/SIMETH 30 ML UNIT-DOSE CUP PO PRN (13:29)
[2020-07-20] MEDS ORDERED: IBUPROFEN 400 MG TABLET (FP) PO PRN (13:29)
[2020-07-20] MEDS ORDERED: MENTHOL/PHENOL 1 EACH UD MM PRN (13:29)
[2020-07-20] MEDS ORDERED: NICOTINE POLACRILEX 2 MG GUM BUC PRN (13:29)
--- OUTSIDE RECORDS SUMMARY | 2020-07-20 15:26 | XMS ---
:1980 Author Organization [facility] Care Team Providers Name Role Phone [...] is protected by Article 27-F of the [facility] Public Health law. If you continue you may haveaccess to information: Regarding HIV / AIDS; Provided by facilities licensed or operated by the [facility] Office of Mental Health; or Provided by the [facility] Office for People With Developmental Disabilities. If such information is present, then the following [facility] mandated warning applies: This information has been [...] law may result in a fine or shelter sentence or both. A general authorization for the release of medical or other information is NOT sufficient authorization for further disclosure. Allergies and Adverse Reactions Type Description Substance Reaction Status Data Source(s ) Drug allergy No Known Allergies No Known Allergies [facility] Drug allergy No Known Allergies No Known Allergies [facility] Encounters Encounter Providers Location Date Indications Data Source(s ) Emergency Attender: [facility] 07/09/2019 Laci Concepcion MDAttender: 01:28:00 PM EDT P [facility] ERAdmitter: [facility] - 07/09/2019 Ovidio Kahn MD 04:14:00 PM EDT Patient discharged. Medications Medication Brand Start Product Dose Route Administrative Pharm[facility] Indications Reaction Description Data Name Date Form Instructions Instructions Source(s) Prednisone predni 20.0 Oral Nuvan ce 20 MG Oral SONE 2019 mg 20 mg, = 1 tab, Oral, Daily, X 7 day(s), # 7 tab, 0 Refill(s), Pharmacy: [facility], 1 tab Oral Daily,x7 day(s) Health - Tablet 20 mg 04:02: [place] predniSONE oral 00 PM Hospital 20 mg oral tablet EDT Center tablet ProAir HFA [id number] 07/09/ Aerosol 2.0 Inhala [place] 90 mcg/inh 2019 tion 2 p uff(s), INH, q4hr, # 8.5 gm, 0 Refill(s), as needed for wheezing, Pharmacy: [facility], 2 puff(s) INH q4hr,PRN:as needed for wheezing Health - inhalation 04:02: [place] aerosol 00 PM [facility] EDT Center Clarithromy clarit 07/09/ 500.0 Oral [place] debra 500 MG hromyc 2019 mg 50 0 mg, = 1 tab, Oral, q12hr (specified start), X 10 day(s), # 20 tab, 0 Refill(s), Pharmacy: [facility], 1 tab Oral q12hr (specified start),x10 day(s) Health - Oral Tablet in 500 04:02: [place] clarithromy mg 00 PM [facility]osp[facility] debra 500 mg oral EDT Center oral tablet tablet Insurance Providers Payer name Policy type Policy ID Covered Covered constitution party's Policy P sal / Coverage constitution party ID relationship to Almaraz Inf ormation type [facility] [id number] MEDICARE MEDICAID [id number] SP [id number] [place] MEDICARE [id number] SP [id number] [facility] [id number] 71 MEDICARE Results ID Date Data Source [id number] 07/04/2020 12:00:00 AM EDT [facility] Name Value Range Interpretation Code Description Data Sulma rce(s) Supporting Document(s ) 2019-nCoV [facility] RNA XXX LAMBERT+probe- Imp This lab [facility] and reported by [facility]. ID Date Data Source [id number] 07/09/2019 03:22:00 PM EDT [facility] Name Value Range Interpretation Description Data Sup porting Code Source(s) Document(s ) UA Color Yellow NO Count Includes [facility] UA Appear Clear NO Count Includes [facility] UA pH 5.0-8.0 NO Count Includes [facility] UA Spec Grav 1.022 1.005-1.030 NO Count Includes [facility] UA Glucose Negative NO Count Includes [facility] UA Ketones Negative NO Count Includes [facility] UA Urobilinogen 0.2-1.0 NO Count Includes [facility] UA Bili Negative NO Count Includes [facility] UA Blood Negative NO Count Includes [facility] UA Protein Negative NO Count Includes [facility] UA Nitrite Negative NO Count Includes [facility] UA Leuk Est Negative NO Count Includes [facility] ID Date Data Source [id number] 07/11/2019 10:00:00 AM EDT [facility] 02/19/ Microbiology - Respiratory CulturesPROCE DURE: Culture,Throat, [...] Supporting Document(s ) ID Date Data Source [id number] 07/09/2019 03:32:00 PM EDT [facility] Name Value Range Interpretation Description Data Sup porting Code Source(s) Document(s ) Lactic 2.0 0.9-2.0 NO [place] Acid Lvl mmol/L [facility] ID Date Data Source [id number] 07/09/2019 03:31:00 PM T [facility] Name Value Range Interpretation Description Data Sup porting Code Source(s) Document(s ) Troponin- <0.01 0.02-0.05 LO [place] I ng/mL [facility] ID Date Data Source [id number] 07/09/2019 03:28:00 PM T [facility] Added by Discern Rule GLB_ADD_GFR_CMP Name Value Range Interpretation Code Description Data Sulma rce(s) Supporting Document(s ) eGFR-AA >60 >=60 NO [facility] mL/min/[address] eGFR-LAMBERT >60 >=60 NO [facility] mL/min/[address] ID Date Data Source [id number] 07/09/2019 03:28:00 PM T [facility] Name Value Range Interpretation Description Data Sup porting Code Source(s) Document(s ) Magnesium 2.2 mg/dL 1.6-2.5 NO Count Includes [facility] ID Date Data Source [id number] 07/09/2019 03:28:00 PM [facility] Name Value Range Interpretation Code Description Data Sulma rce(s) Supporting Document(s ) Lipase Lvl 21 IU/L 10-59 NO Count Includes [facility] ID Date Data Source [id number] 07/09/2019 03:28:00 PM EDT [facility] Name Value Range Interpretation Description Data Sup porting Code Source(s) Document(s ) Glucose Lvl 135 65-99 HI [place] mg/dL [facility] BUN 13.0 7.0-21.0 NO [place] mg/dL [facility] Creatinine 1.09 0.70-1.2 NO [place] mg/dL 0 [facility] BUN/Creat 11.9 7.0-29.0 NO [place] Ratio ratio [facility] Sodium Lvl 138 136-146 NO [place] mmol/L [facility] Potassium Lvl 4.2 3.5-5.1 NO [place] mmol/L [facility] Chloride 100 98-109 NO [place] mmol/L [facility] CO2 32 17-33 NO [place] mmol/L [facility] AGAP 6 5-15 NO Count Includes [facility] Calcium Lvl 8.7 8.3-10.2 NO [place] mg/dL [facility] Total Protein 6.8 6.0-8.3 NO [place] gm/dL [facility] Albumin Lvl 3.6 3.7-5.3 LO [place] gm/dL [facility] Glob 3.2 2.0-4.5 NO [place] gm/dL [facility] A/G Ratio 1.1 1.0-2.2 NO [place] ratio [facility] Bili Total 0.2 0.4-1.1 LO [place] mg/dL [facility] Alk Phos 57 IU/L 30-125 NO Count Includes [facility] AST 26 IU/L 10-35 NO Count Includes [facility] ALT 23 IU/L 8-40 NO Count Includes [facility] ID Date Data Source [id number] 07/09/2019 03:23:00 PM EDT [facility] Name Value Range Interpretation Code Description Data Sulma rce(s) Supporting Document(s ) Rapid Negative NO [facility] Strep [facility] Internal QC is Valid.07/09/2019 15:22:59 EDTMDTest methodology is Lateral flow immunoassay for the qualitative detectio n of Strep. A antigen. Findings must be correlated with clinical history. Negati ve results and persistence of clinical symptoms should be followed up with cult ure. ID Date Data Source [id number] 07/09/2019 03:04:00 PM EDT [facility] Name Value Range Interpretation Description Data Sup porting Code Source(s) Document(s ) Neut Auto 73.6 % 40.0-70.0 HI Count Includes [facility] Lymph Auto 15.5 % 22.0-44.0 LO Count Includes [facility] Winkler Auto 9.3 % 4.0-11.0 NO Count Includes [facility] Eos Auto 1.5 % 0.0-8.0 NO Count Includes [facility] Baso Auto 0.1 % 0.0-3.0 [facility] Neut 10.6 1.8-7.7 HI [place] Absolute x10(3)/[facility] Lymph 2.2 1.0-4.8 NO [place] Absolute x10(3)/[facility] Winkler 1.3 0.2-1.2 HI [place] Absolute x10(3)/[facility] Eos Absolute 0.2 0.0-0.9 NO [place] x10(3)/[facility] Baso 0.0 0.0-0.3 NO [place] Absolute x10(3)/[facility] ID Date Data Source [id number] 07/09/2019 03:04:00 PM EDT [facility] Name Value Range Interpretation Description Data Sup porting Code Source(s) Document(s ) WBC 14.5 4.5-11.0 HI [place] x10(3)/[facility] RBC 3.49 4.50-5.90 LO [place] x10(6)/[facility] Hgb 11.4 13.5-17.5 [facility] gm/dL [facility] Hct 33.8 % 41.0-53.0 [facility] MCV 97 fL 80-100 NO Count Includes [facility] MCH 32.8 pg 26.0-34.0 NO Count Includes [facility] MCHC 33.8 31.0-37.0 NO [facility] gm/dL [facility] RDW 14.2 % 11.5-14.5 NO Count Includes [facility] Platelet 205 150-350 NO [facility] x10(3)/[facility] MPV 7.1 fL 7.4-10.4 [facility] Procedure Social History Code Duration Value Status Description Data Source(s ) Smoking 07/09/2019 Occasional completed Occasional tobacco [facility] Eved - 02:12:49 PM EDT tobacco smoker smoker (finding) [facility] (finding) [place] Vital Signs ID Date Data Source UNK Name Value Range Interpretation Code Description Data Source(s) Oral temperature 98.0 [degF] 96.4-99.1 Normal (applies to 98.0 [degF ] [place] DegF non-numeric results) - [facility] Mean blood 72 mm[Hg] 72 mm[Hg] [facility] Eggs Overnight pressure by - [facility] Heart rate 72 bpm 60-100 bpm Normal (applies to 72 bpm [facility] Eved non-numeric results) - [facility] Respiratory rate 13 br/min 14-20 Below low normal 13 br/min [facility] br/min - [facility] Oxygen saturation 92 % 94-100 % 92 % [facility] Eggs Overnight in Blood [facility] Postductal by Hospital Pulse oximetry Center Diastolic blood 51 mm[Hg] 60-90 mmHg 51 mm[Hg] [facility] ealth pressure - [facility] Systolic blood 115 mm[Hg] 90-130 mmHg Normal (applies to 115 mm[Hg] [facility] non-numeric results) - [facility] Rectal 98.1 [degF] 97.3-100 Normal (applies to 98.1 [degF] [facility] temperature DegF non-numeric results) - [facility] Heart rate 62 bpm 60-100 bpm Normal (applies to 62 bpm [place] [facility] non-numeric results) - [facility] Oxygen therapy [place] [facility] alth [Minimum Data - [place] Set] Hospital Center Oral temperature 98.8 [degF] 96.4-99.1 Normal (applies to 98.8 [degF ] [place] DegF non-numeric results) - [facility] Respiratory rate 18 br/min 14-20 Normal (applies to 18 br/min [facility] br/min non-numeric results) - [facility] Oxygen saturation 96 % 94-100 % Normal (applies to 96 % [facility] in Blood non-numeric results) - [facility] Postductal by Hospital Pulse oximetry Center Heart rate 77 bpm 60-100 bpm Normal (applies to 77 bpm [facility] non-numeric results) - [facility] Diastolic blood 66 mm[Hg] 60-90 mmHg Normal (applies to 66 mm[Hg] [facility] pressure non-numeric results) - [facility] Systolic blood 115 mm[Hg] 90-130 mmHg Normal (applies to 115 mm[Hg] [facility] pressure non-numeric results) - [facility] Oral temperature 99.1 [degF] 96.4-99.1 Normal (applies to 99.1 [degF ] [facility] DegF non-numeric results) - [facility] Diastolic blood 60 mm[Hg] 60-90 mmHg Normal (applies to 60 mm[Hg] [facility] pressure non-numeric results) - [facility] Systolic blood 109 mm[Hg] 90-130 mmHg Normal (applies to 109 mm[Hg] [facility] pressure non-numeric results) - [facility] Respiratory rate 16 br/min 14-20 Normal (applies to 16 br/min [facility] br/min non-numeric results) - [facility] Oxygen therapy [place] [facility] alth [Minimum Data - [place] Set] Hospital Center Oxygen saturation 96 % 94-100 % Normal (applies to 96 % [facility] in Blood non-numeric results) - [facility] Postductal by Hospital Pulse oximetry Center Body mass index 25.34 kg/m2 25.34 kg/m2 [facility] [[facility]] - [facility] Body height 165 cm 165 cm [facility] - [facility] Body mass index 25.34 kg/m2 25.34 kg/m2 [facility] (BMI) [Ratio] - [facility] Body weight 69 kg 69 kg [facility] Measured - [facility] Patient Treatment Plan of Care Planned Activity Planned Date Details Description Data Source (s) ProAir HFA 90 mcg/inh 07/09/2019 04:02:00 [place] - inhalation aerosol PM EDT [facility] Prednisone 20 MG Oral 07/09/2019 04:02:00 [email or web address] - Tablet PM [facility] Clarithromycin 500 MG Oral 07/09/2019 04:02:00 [facility]
[2020-07-20] MEDS: hydrOXYzine PAMOATE 25 MG CAPSULE (FP) PO SCH ×3 (15:49→22:44)
[2020-07-20] MEDS: NICOTINE 14 MG/24 HOURS TOPICAL PATCH TD SCH (15:49)
--- NOTE | 2020-07-20 16:55 | PN ---
S Progress Note Note: Psychiatric nurse practitioner note: Patient asleep in his bed. Observed to be breathing. Psychiatric consultation deferred to tomorrow.
[2020-07-20 17:03] LABS: HEMOGLOBIN 12.3 GM/dL (11.7-16.9); MCH 33.5 pg (25.7-33.7); MCHC 34.2 g/dl (32.0-35.9); MEAN CELL VOLUME 97.9 fl (80-96); MEAN PLT VOLUME 7.6 fl (7.5-11.1); PLATELET COUNT 228 K/MM3 (134-434); RBC 3.67 M/mm3 (4.00-5.60); RDW 13.9 % (11.9-15.9); WHITE BLOOD COUNT 10.4 K/mm3 (4.0-10.0)
[2020-07-20 17:14] LABS: ALBUMIN 3.8 g/dl (3.4-5.0); BILIRUBIN,TOTAL 0.4 mg/dL (0.2-1); BLOOD UREA NITROGEN 19.8 mg/dL (7-18); CALCIUM 8.8 mg/dL (8.5-10.1); CREATININE 1.1 mg/dL (0.55-1.3); POTASSIUM 4.1 mmol/L (3.5-5.1); TOT PROT 7.5 g/dl (6.4-8.2)
[2020-07-20] MEDS: LORazepam 2 MG TABLET PO SCH ×2 (17:57→22:44)
[2020-07-20] MEDS: THIAMINE HCL 100 MG TABLET (FP) PO SCH (22:44)
[2020-07-20] MEDS: MELATONIN 5 MG TABLETS PO SCH (22:44)
[2020-07-21] MEDS: LORazepam 2 MG TABLET PO SCH ×4 (07:13→22:46)
[2020-07-21] MEDS: hydrOXYzine PAMOATE 25 MG CAPSULE (FP) PO SCH ×5 (07:13→22:46)
--- NOTE | 2020-07-21 08:56 | PN ---
S CIWA - CIWA Score Nausea/Vomitin Muscle Tremors: 3 Anxiety: 3 Agitation: 3 Paroxysmal Sweats: No Perspiration Orientation: 0-Oriented Tacttile Disturbances: 1-Very Mild Itch/Numbness Auditory Disturbances: 0-None Visual Disturbances: 0-None Headache: 2-Mild CIWA-Ar Total Score: 14 S Progress Note (SOAP) Subjective: alert,irritable,anxious,interrupted sleep,tremor,pain in the body back,nausea Objective: 07/21/20 09:33 Vital Signs Temperature 98.6 F 07/21/20 08:36 Pulse Rate 69 07/21/20 08:36 Respiratory Rate 18 07/21/20 08:36 Blood Pressure 102/68 07/21/20 08:36 O2 Sat by Pulse Oximetry (%) 98 07/21/20 06:40 Laboratory Last Values WBC 10.4 K/mm3 (4.0-10.0) H 07/20/20 14:15 RBC 3.67 M/mm3 (4.00-5.60) L 07/20/20 14:15 Hgb 12.3 GM/dL (11.7-16.9) 07/20/20 14:15 Hct 36.0 % (35.4-49) 07/20/20 14:15 MCV 97.9 fl (80-96) H 07/20/20 14:15 MCH 33.5 pg (25.7-33.7) 07/20/20 14:15 MCHC 34.2 g/dl (32.0-35.9) 07/20/20 14:15 RDW 13.9 % (11.9-15.9) 07/20/20 14:15 Plt Count 228 K/MM3 (134-434) 07/20/20 14:15 MPV 7.6 fl (7.5-11.1) 07/20/20 14:15 Sodium 142 mmol/L (136-145) 07/20/20 14:15 Potassium 4.1 mmol/L (3.5-5.1) 07/20/20 14:15 Chloride 106 mmol/L (98-107) 07/20/20 14:15 Carbon Dioxide 33 mmol/L (21-32) H 07/20/20 14:15 Anion Gap 4 MMOL/L (8-16) L 07/20/20 14:15 BUN 19.8 mg/dL (7-18) H 07/20/20 14:15 Creatinine 1.1 mg/dL (0.55-1.3) 07/20/20 14:15 Est GFR (CKD-EPI)AfAm 95.46 07/20/20 14:15 Est GFR (CKD-EPI)NonAf 82.36 07/20/20 14:15 Random Glucose 140 mg/dL (74-106) H 07/20/20 14:15 Calcium 8.8 mg/dL (8.5-10.1) 07/20/20 14:15 Total Bilirubin 0.4 mg/dL (0.2-1) 07/20/20 14:15 AST 29 U/L (15-37) 07/20/20 14:15 ALT 32 U/L (13-61) 07/20/20 14:15 Alkaline Phosphatase 80 U/L (45-117) 07/20/20 14:15 Total Protein 7.5 g/dl (6.4-8.2) 07/20/20 14:15 Albumin 3.8 g/dl (3.4-5.0) 07/20/20 14:15 Syphilis Serology Non-reactive (NONREACTIVE) 07/20/20 14:15 HIV Ag/Ab Combo Qual Negative (NEGATIVE) 07/20/20 14:15 Assessment: 07/21/20 09:35 withdrawal symptom Plan: continue detox ativan regimen,wbc is 10,400,bun 19.8,initial glucose 140,encourage oral fluid,hydration,repeat cbc,bmp,fasting glucose in am,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
[2020-07-21] MEDS ORDERED: METHADONE HCL 10 MG TABLET PO SCH (09:00)
[2020-07-21] MEDS ORDERED: METHADONE HCL 10 MG TABLET ONE (10:00)
[2020-07-21] MEDS ORDERED: METHADONE HCL 40 MG DISPERSABLE TABLET ONE (10:01)
[2020-07-21] MEDS: PRENATAL VITAMINS W/ FOLIC ACID TABLET (FP) PO SCH (10:24)
[2020-07-21] MEDS: NICOTINE 14 MG/24 HOURS TOPICAL PATCH TD SCH (10:25)
[2020-07-21] MEDS: METHADONE 40 MG, METHADONE 20 MG PO SCH (10:25)
[2020-07-21] MEDS ORDERED: FLU VACCINE (FLULAVAL) PF 60 MCG/0.5 ML SYRINGE 2020-2021 IM ONE (12:00)
--- NOTE | 2020-07-21 13:11 | CONSULT ---
[facility] Psychiatric Consult - Data Date of interview: 07/21/20 Admission source: [facility] Identifying data: Stucco Worker approached patient this morning for psychiatric consultation. Patient presented as moderately sedated. Mr. Medina stated to automotive service writer, " I can't talk right now. I am too tired." Psychiatric consultation refused. Please other another psychiatric consultation if requested by patient.
[2020-07-21] MEDS: THIAMINE HCL 100 MG TABLET (FP) PO SCH (22:46)
[2020-07-21] MEDS: MELATONIN 5 MG TABLETS PO SCH (22:46)
[2020-07-22] MEDS ORDERED: METHADONE HCL 10 MG TABLET ONE (05:05)
[2020-07-22] MEDS ORDERED: METHADONE HCL 40 MG DISPERSABLE TABLET ONE (05:05)
[2020-07-22] MEDS ORDERED: MASKS NR ONE (07:34)
[2020-07-22] MEDS: LORazepam 1 MG TABLET PO SCH ×4 (07:37→23:03)
[2020-07-22] MEDS: METHADONE 40 MG, METHADONE 20 MG PO SCH (07:37)
[2020-07-22] MEDS: hydrOXYzine PAMOATE 25 MG CAPSULE (FP) PO SCH ×5 (07:38→23:02)
[2020-07-22] MEDS: PRENATAL VITAMINS W/ FOLIC ACID TABLET (FP) PO SCH (10:00)
[2020-07-22] MEDS: NICOTINE 14 MG/24 HOURS TOPICAL PATCH TD SCH (10:00)
--- NOTE | 2020-07-22 10:52 | PN ---
[facility] CIWA - CIWA Score Nausea/Vomitin-No Nausea/No Vomiting Muscle Tremors: 2 Anxiety: 3 Agitation: 1-Slight > Activity Paroxysmal Sweats: 3 Orientation: 1-Uncertain about Date Tacttile Disturbances: 0-None Auditory Disturbances: 0-None Visual Disturbances: 0-None Headache: 1-Very Mild CIWA-Ar Total Score: 11 S Progress Note (SOAP) Subjective: c/o anxiety, sweats, headache, shakes, and irritability. Objective: 07/22/20 10:49 Vital Signs 07/22/20 07/22/20 05:13 08:51 Temperature 98.1 F 97.7 F Pulse Rate 64 69 Respiratory 16 18 Rate Blood Pressure 102/60 116/69 O2 Sat by Pulse 100 Oximetry (%) Laboratory Last Values WBC 10.4 K/mm3 (4.0-10.0) H 07/20/20 14:15 RBC 3.67 M/mm3 (4.00-5.60) L 07/20/20 14:15 Hgb 12.3 GM/dL (11.7-16.9) 07/20/20 14:15 Hct 36.0 % (35.4-49) 07/20/20 14:15 MCV 97.9 fl (80-96) H 07/20/20 14:15 MCH 33.5 pg (25.7-33.7) 07/20/20 14:15 MCHC 34.2 g/dl (32.0-35.9) 07/20/20 14:15 RDW 13.9 % (11.9-15.9) 07/20/20 14:15 Plt Count 228 K/MM3 (134-434) 07/20/20 14:15 MPV 7.6 fl (7.5-11.1) 07/20/20 14:15 Sodium 142 mmol/L (136-145) 07/20/20 14:15 Potassium 4.1 mmol/L (3.5-5.1) 07/20/20 14:15 Chloride 106 mmol/L (98-107) 07/20/20 14:15 Carbon Dioxide 33 mmol/L (21-32) H 07/20/20 14:15 Anion Gap 4 MMOL/L (8-16) L 07/20/20 14:15 BUN 19.8 mg/dL (7-18) H 07/20/20 14:15 Creatinine 1.1 mg/dL (0.55-1.3) 07/20/20 14:15 Est GFR (CKD-EPI)AfAm 95.46 07/20/20 14:15 Est GFR (CKD-EPI)NonAf 82.36 07/20/20 14:15 Random Glucose 140 mg/dL (74-106) H 07/20/20 14:15 Calcium 8.8 mg/dL (8.5-10.1) 07/20/20 14:15 Total Bilirubin 0.4 mg/dL (0.2-1) 07/20/20 14:15 AST 29 U/L (15-37) 07/20/20 14:15 ALT 32 U/L (13-61) 07/20/20 14:15 Alkaline Phosphatase 80 U/L (45-117) 07/20/20 14:15 Total Protein 7.5 g/dl (6.4-8.2) 07/20/20 14:15 Albumin 3.8 g/dl (3.4-5.0) 07/20/20 14:15 Syphilis Serology Non-reactive (NONREACTIVE) 07/20/20 14:15 COVID-19 (LAMBERT) Not detected (Not Detected) 07/20/20 15:30 HIV Ag/Ab Combo Qual Negative (NEGATIVE) 07/20/20 14:15 Labs noted. Assessment: 07/22/20 10:51 AOX3, in no acute respiratory distress. Full ROM, ambulating in the unit. Withdrawal symptoms. Plan: continue detox.
[2020-07-22 12:05] LABS: HEMATOCRIT 34.1 % (35.4-49); HEMOGLOBIN 11.7 GM/dL (11.7-16.9); MCH 33.5 pg (25.7-33.7); MCHC 34.2 g/dl (32.0-35.9); MEAN CELL VOLUME 97.8 fl (80-96); MEAN PLT VOLUME 8.2 fl (7.5-11.1); PLATELET COUNT 201 K/MM3 (134-434); RBC 3.49 M/mm3 (4.00-5.60); RDW 13.8 % (11.9-15.9); WHITE BLOOD COUNT 8.2 K/mm3 (4.0-10.0)
[2020-07-22 12:06] LABS: BLOOD UREA NITROGEN 18.9 mg/dL (7-18); CALCIUM 8.9 mg/dL (8.5-10.1); CREATININE 0.9 mg/dL (0.55-1.3); POTASSIUM 4.2 mmol/L (3.5-5.1)
--- NOTE | 2020-07-22 17:35 | PN ---
[facility] Progress Note Note: Received report from the staff nurse that pt is appears drowsy and was visualized in the hallway with eyes closed and walking very slowly. Pt was seen at bedside talking to himself and walking in and out of his room with unsteady gait and not following directions. Pt is disoriented and unable to state the month, year, and the name of the president ceo & founder at the moment. Denies any headache, chest pain, palpitation, sob, or n/v. Pt refused physical examination at this time. Pt states, "i'm good leave me alone". Assessment: Altered mental status. Plan: Send to [facility] ED for evaluation. Verbal report given to Eric Herrera.
[2020-07-22] MEDS: MELATONIN 5 MG TABLETS PO SCH (23:02)
[2020-07-22] MEDS: THIAMINE HCL 100 MG TABLET (FP) PO SCH (23:03)
[2020-07-23] MEDS ORDERED: LORazepam 0.5 MG TABLET PO PRN
--- NOTE | 2020-07-23 01:09 | PN ---
[facility] Progress Note Note: Patient came back from ER still sleepy. Spoke to Dr. Shahid Rojas who states that patient's labs and other evaluations in emergency room were within norm. Patient reports that he is just tired. Vital Signs Temperature 97.3 F L 07/22/20 16:31 Pulse Rate 70 07/22/20 16:31 Respiratory Rate 16 07/22/20 16:31 Blood Pressure 116/72 07/22/20 16:31 O2 Sat by Pulse Oximetry (%) 96 07/22/20 12:33 Laboratory Last Values WBC 8.2 K/mm3 (4.0-10.0) 07/22/20 07:30 RBC 3.49 M/mm3 (4.00-5.60) L 07/22/20 07:30 Hgb 11.7 GM/dL (11.7-16.9) 07/22/20 07:30 Hct 34.1 % (35.4-49) L 07/22/20 07:30 MCV 97.8 fl (80-96) H 07/22/20 07:30 MCH 33.5 pg (25.7-33.7) 07/22/20 07:30 MCHC 34.2 g/dl (32.0-35.9) 07/22/20 07:30 RDW 13.8 % (11.9-15.9) 07/22/20 07:30 Plt Count 201 K/MM3 (134-434) 07/22/20 07:30 MPV 8.2 fl (7.5-11.1) 07/22/20 07:30 Sodium 142 mmol/L (136-145) 07/22/20 07:30 Potassium 4.2 mmol/L (3.5-5.1) 07/22/20 07:30 Chloride 105 mmol/L (98-107) 07/22/20 07:30 Carbon Dioxide 32 mmol/L (21-32) 07/22/20 07:30 Anion Gap 5 MMOL/L (8-16) L 07/22/20 07:30 BUN 18.9 mg/dL (7-18) H 07/22/20 07:30 Creatinine 0.9 mg/dL (0.55-1.3) 07/22/20 07:30 Est GFR (CKD-EPI)AfAm 121.67 07/22/20 07:30 Est GFR (CKD-EPI)NonAf 104.98 07/22/20 07:30 Random Glucose 98 mg/dL (74-106) 07/22/20 07:30 Fasting Glucose Cancelled 07/22/20 08:40 Calcium 8.9 mg/dL (8.5-10.1) 07/22/20 07:30 Total Bilirubin 0.4 mg/dL (0.2-1) 07/20/20 14:15 AST 29 U/L (15-37) 07/20/20 14:15 ALT 32 U/L (13-61) 07/20/20 14:15 Alkaline Phosphatase 80 U/L (45-117) 07/20/20 14:15 Total Protein 7.5 g/dl (6.4-8.2) 07/20/20 14:15 Albumin 3.8 g/dl (3.4-5.0) 07/20/20 14:15 Syphilis Serology Non-reactive (NONREACTIVE) 07/20/20 14:15 COVID-19 (LAMBERT) Not detected (Not Detected) 07/20/20 15:30 HIV Ag/Ab Combo Qual Negative (NEGATIVE) 07/20/20 14:15 Action: Continue detox
[2020-07-23] MEDS ORDERED: METHADONE HCL 10 MG TABLET ONE (04:31)
[2020-07-23] MEDS ORDERED: METHADONE HCL 40 MG DISPERSABLE TABLET ONE (04:31)
[2020-07-23] MEDS: hydrOXYzine PAMOATE 25 MG CAPSULE (FP) PO SCH ×5 (07:17→22:24)
[2020-07-23] MEDS: METHADONE 40 MG, METHADONE 20 MG PO SCH (07:17)
[2020-07-23] MEDS: LORazepam 0.5 MG TABLET PO SCH ×4 (07:18→22:24)
[2020-07-23] MEDS: PRENATAL VITAMINS W/ FOLIC ACID TABLET (FP) PO SCH (10:00)
[2020-07-23] MEDS: NICOTINE 14 MG/24 HOURS TOPICAL PATCH TD SCH (10:00)
--- NOTE | 2020-07-23 11:34 | PN ---
S CIWA - CIWA Score Nausea/Vomitin-No Nausea/No Vomiting Muscle Tremors: 1-None Visible, but [place] Anxiety: 1-Mildly Anxious Agitation: 0-Normal Activity Paroxysmal Sweats: 2 Orientation: 0-Oriented Tacttile Disturbances: 0-None Auditory Disturbances: 0-None Visual Disturbances: 1-Very Mild Sensitivity Headache: 1-Very Mild CIWA-Ar Total Score: 6 [facility] Progress Note (SOAP) Subjective: 40 years old male was admitted on 07/20/20 for alcohol withdrawal sx management treating with ativan detox regiment feels better today positioning bed in high encourage to lower the bed for safety mr mar prefers "I like high like this" mr mar keep closing his eyes during the conversation "I am tired" mr mar sent to ER due to sleepiness return back to [facility] for alcohol withdrawal management mr mar prefers to go to [facility] or [facility] in patient for alcohol abuse treatment mr mar received methadone 60mg po today around 8 am Objective: 07/23/20 11:56 Vital Signs - 24 hr 07/22/20 07/22/20 07/23/20 12:33 16:31 01:10 Temperature 97.7 F 97.3 F L 97.7 F Pulse Rate 62 70 65 Respiratory 18 16 18 Rate Blood Pressure 104/73 116/72 104/64 O2 Sat by Pulse 96 98 Oximetry (%) 07/23/20 07/23/20 07:03 08:13 Temperature 97.9 F 97.6 F Pulse Rate 66 65 Respiratory 18 18 Rate Blood Pressure 111/70 103/70 O2 Sat by Pulse 97 Oximetry (%) Laboratory Tests 07/20/20 07/20/20 07/20/20 14:15 14:15 14:15 WBC 10.4 H RBC 3.67 L Hgb 12.3 Hct 36.0 MCV 97.9 H MCH 33.5 MCHC 34.2 RDW 13.9 Plt Count 228 MPV 7.6 Sodium 142 Potassium 4.1 Chloride 106 Carbon Dioxide 33 H Anion Gap 4 L BUN 19.8 H Creatinine 1.1 Est GFR (CKD-EPI)AfAm 95.46 Est GFR (CKD-EPI)NonAf 82.36 Random Glucose 140 H Fasting Glucose Calcium 8.8 Total Bilirubin 0.4 AST 29 ALT 32 Alkaline Phosphatase 80 Total Protein 7.5 Albumin 3.8 Syphilis Serology Non-reactive COVID-19 (LAMBERT) HIV Ag/Ab Combo Qual 07/20/20 07/20/20 07/22/20 14:15 15:30 07:30 WBC 8.2 RBC 3.49 L Hgb 11.7 Hct 34.1 L MCV 97.8 H MCH 33.5 MCHC 34.2 RDW 13.8 Plt Count 201 MPV 8.2 Sodium Potassium Chloride Carbon Dioxide Anion Gap BUN Creatinine Est GFR (CKD-EPI)AfAm Est GFR (CKD-EPI)NonAf Random Glucose Fasting Glucose Calcium Total Bilirubin AST ALT Alkaline Phosphatase Total Protein Albumin Syphilis Serology COVID-19 (LAMBERT) Not detected HIV Ag/Ab Combo Qual Negative 07/22/20 07/22/20 07:30 08:40 WBC RBC Hgb Hct MCV MCH MCHC RDW Plt Count MPV Sodium 142 Potassium 4.2 Chloride 105 Carbon Dioxide 32 Anion Gap 5 L BUN 18.9 H Creatinine 0.9 Est GFR (CKD-EPI)AfAm 121.67 Est GFR (CKD-EPI)NonAf 104.98 Random Glucose 98 Fasting Glucose Cancelled Calcium 8.9 Total Bilirubin AST ALT Alkaline Phosphatase Total Protein Albumin Syphilis Serology COVID-19 (LAMBERT) HIV Ag/Ab Combo Qual glucose elevation fasting cancelled Assessment: 07/23/20 11:58 alcohol withdrawal Plan: ativan regiment
[2020-07-23] MEDS: THIAMINE HCL 100 MG TABLET (FP) PO SCH (22:24)
[2020-07-23] MEDS: MELATONIN 5 MG TABLETS PO SCH (22:24)
[2020-07-24] MEDS ORDERED: METHADONE HCL 10 MG TABLET ONE (04:35)
[2020-07-24] MEDS ORDERED: METHADONE HCL 40 MG DISPERSABLE TABLET ONE (04:36)
[2020-07-24] MEDS ORDERED: LORazepam 0.5 MG TABLET PO ONE (05:00)
[2020-07-24] MEDS: METHADONE 40 MG, METHADONE 20 MG PO SCH (05:38)
[2020-07-24] MEDS: hydrOXYzine PAMOATE 25 MG CAPSULE (FP) PO SCH ×2 (05:57→10:09)
[2020-07-24 06:51] VITALS: BP 102/63; PULSE 66; TEMP 98.2
--- NOTE | 2020-07-24 09:10 | DS ---
[facility] Detox Discharge Summary Admission Date: 07/20/20 Discharge Date: 07/24/20 - History Present History: Alcohol Dependence, Cannabis Dependence, Cocaine Dependence, MMTP - Physical Exam Results Vital Signs: Vital Signs Temperature 98.2 F 07/24/20 06:50 Pulse Rate 66 07/24/20 06:50 Respiratory Rate 18 07/24/20 06:50 Blood Pressure 102/63 07/24/20 06:50 O2 Sat by Pulse Oximetry (%) 98 07/24/20 06:50 - Treatment Hospital Course: Detox Protocol Followed, Detoxed Safely, Responded well, Discharged Condition Good - Medication Discharge Medications: Ambulatory Orders Methadone [Dolophine -] 60 mg PO DAILY 07/20/20 - Diagnosis (1) Alcohol dependence with uncomplicated withdrawal Current Visit: Yes Status: Acute (2) Cannabis dependence Current Visit: Yes Status: Acute (3) Cocaine dependence, uncomplicated Current Visit: Yes Status: Acute (4) Nicotine dependence Current Visit: Yes Status: Acute Qualifiers: Nicotine product type: cigarettes Substance use status: uncomplicated Qualified Code(s): F17.210 - Nicotine dependence, cigarettes, uncomplicated (5) Opioid dependence on agonist therapy Current Visit: Yes Status: Acute (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
--- NOTE | 2020-07-24 09:10 | PN ---
[facility] CIWA - CIWA Score Nausea/Vomitin-No Nausea/No Vomiting Muscle Tremors: None Anxiety: 1-Mildly Anxious Agitation: 0-Normal Activity Paroxysmal Sweats: No Perspiration Orientation: 0-Oriented Tacttile Disturbances: 0-None Auditory Disturbances: 0-None Visual Disturbances: 0-None Headache: 0-None Present CIWA-Ar Total Score: 1 S Progress Note (SOAP) Subjective: alert,no complaint Objective: 07/24/20 10:36 Vital Signs Temperature 98.2 F 07/24/20 06:50 Pulse Rate 66 07/24/20 06:50 Respiratory Rate 18 07/24/20 06:50 Blood Pressure 102/63 07/24/20 06:50 O2 Sat by Pulse Oximetry (%) 98 07/24/20 06:50 Assessment: 07/24/20 10:36 detox completed,no withdrawal symptom Plan: detox completed,no withdrawal symptom,stable for discharge today,follow up with after care program [facility]
[2020-07-24] MEDS: PRENATAL VITAMINS W/ FOLIC ACID TABLET (FP) PO SCH (10:08)
[2020-07-24] MEDS: NICOTINE 14 MG/24 HOURS TOPICAL PATCH TD SCH (10:08)
--- NOTE | 2020-07-24 10:49 | PN ---
[facility] Progress Note Note: alert,oriented x 3 ambulation on the unit lung clear on auscultation bilaterally abdomen soft,no pain,no tenderness no edema of legs detox completed,no withdrawal symptom stable for discharge today total time spending 35 minutes follow up with after care program [facility] arrangement
== END 2020-07-24 12:55 | disposition other institution (70) | DRG 897 ==
LOC: YASAS 11:46 → Y3N 14:17
PROVIDERS: ADMIT Allergy & Immunology; ATTEND Allergy & Immunology
PROC: HZ2ZZZZ Detoxification Services for Substance Abuse Treatment (ICD-10-PCS; principal; 2020-07-20)
DX: F10.230 Alcohol dependence with withdrawal, uncomplicated (principal); F14.20 Cocaine dependence, uncomplicated; F11.20 Opioid dependence, uncomplicated; F12.20 Cannabis dependence, uncomplicated; F17.210 Nicotine dependence, cigarettes, uncomplicated; F41.9 Anxiety disorder, unspecified; F32.9 Major depressive disorder, single episode, unspecified; H54.61 Unqualified visual loss, right eye, normal vision left eye; J45.909 Unspecified asthma, uncomplicated; B18.2 Chronic viral hepatitis C; R41.82 Altered mental status, unspecified; Z90.49 Acquired absence of other specified parts of digestive tract; Z91.018 Allergy to other foods
CPT/HCPCS: 36415; 80048; 80053; 85027; 86780; 87389; C9803; U0003

== ENCOUNTER 2020-07-22 18:54 | Emergency (ER) | payer OTHER ==
--- NOTE | 2020-07-22 19:13 | PDOC ---
History of Present Illness - General Stated Complaint: AMS Time Seen by Provider: 07/22/20 19:13 - History of Present Illness Initial Comments: 40 YOM history of substance abuse presents from detox for altered mental status. Patient was reported appearing drowsy and seen in the hallways with eyes closed and walking very slowly. Pt was seen at bedside talking to himself and walking in and out of his room with unsteady gait and not following directions. Pt was disoriented and unable to state the month, year, and the name of the operations vice president at the time. Denied any headache, chest pain, palpitation, sob, or n/v. Was sent here for eval. Patient poorly compliant with history taking. Reports that he needs to have drugs that were [facility] "flushed out of system". Denies CP, SOB, N/V/D, fever, chills, recent drug use, falling, head trauma. Constitutional: No Weight Change, No Fever, No Chills, No Night Sweats, No Fatigue, No Malaise ENT/Mouth: No Hearing Changes, No Ear Pain, No Nasal Congestion, No Sinus Pain, No Hoarseness, No sore throat, No Rhinorrhea, No Swallowing Difficulty Eyes: No Eye Pain, No Swelling, No Redness, No Foreign Body, No Discharge, No Vision Changes Cardiovascular: No Chest Pain, No SOB, No PND, No Dyspnea on Exertion, No Orthopnea, No Claudication, No Edema, No Palpitations Respiratory: No Cough, No Sputum, No Wheezing, No Smoke Exposure, No Dyspnea Gastrointestinal: No Nausea, No Vomiting, No Diarrhea, No Constipation, No Pain, No Heartburn, No Anorexia, No Dysphagia, No Hematochezia, No Melena, No Flatulence, No Jaundice : No Dyspareunia, No Dysuria, No Urinary Frequency, No Hematuria, No Urinary Incontinence, No Urgency, No Flank Pain, No Urinary Flow Changes, No Hesitancy Musculoskeletal: No Arthralgias, No Myalgias, No Joint Swelling, No Joint Stiffness, No Back Pain, No Neck Pain, No Injury History Skin: No Skin Lesions, No Pruritis, No Hair Changes, No Breast/Skin Changes, No Nipple Discharge Neuro: No Weakness, No Numbness, No Paresthesias, No Loss of Consciousness, No Syncope, No Dizziness, No Headache, No Coordination Changes, No Recent Falls Psych: No Anxiety/Panic, No Depression, No Insomnia, No Personality Changes, No Delusions, No Rumination, No SI/HI/AH/VH, No Social Issues, No Memory Changes, No Violence/Abuse Hx., No Eating Concerns Heme/Lymph: No Bruising, No Bleeding, No Transfusions History, No Lymphadenopathy Endocrine: No Polyuria, No Polydipsia, No Temperature Intolerance Past History - Medical History Allergies/Adverse Reactions: Allergies Allergy/AdvReac Type Severity Reaction Status Date / Time onion Allergy Intermediate Rash Verified 07/20/20 13:50 PEPPERS Allergy Intermediate Rash Uncoded 07/20/20 14:04 Home Medications: Ambulatory Orders Methadone [Dolophine -] 60 mg PO DAILY 07/20/20 Anemia: No Asthma: Yes Cancer: No Cardiac Disorders: No CVA: No COPD: No CHF: No Dementia: No Diabetes: No GI Disorders: No Disorders: No HTN: No Hypercholesterolemia: No Kidney Stones: No Liver Disease: No Seizures: Yes (LAST 4 MTHS AGO- ALCOHOL WITHDRAWAL) Thyroid Disease: No - Surgical History Abdominal Surgery: Yes (2010) Appendectomy: Yes (2011) Cardiac Surgery: No Cholecystectomy: No Lung Surgery: No Neurologic Surgery: No Orthopedic Surgery: No - Reproductive History Testicular Surgery: No - Psycho-Social/Smoking History Smoking History: Current every day smoker Have you smoked in the past 12 months: Yes Number of Cigarettes Smoked Daily: 10 Cigars Per Day: 0 'Breaking Loose' booklet given: 07/20/20 *Physical Exam - Physical Exam General Appearance: Yes: Disheveled, Other (Patient is somnolent, decreased responsiveness but AandOx3) HEENT: positive: EOMI, MELYSSA, Normal ENT Inspection, Normal Voice, Symmetrical, TMs Normal, Pharynx Normal Neck: positive: Trachea midline, Normal Thyroid Respiratory/Chest: positive: Wheezing Cardiovascular: positive: Regular Rhythm, Regular Rate, S1, S2 Gastrointestinal/Abdominal: positive: Normal Bowel Sounds, Flat, Soft Musculoskeletal: positive: Normal Inspection Extremity: positive: Normal Capillary Refill, Normal Inspection Integumentary: positive: Normal Color, Dry, Warm 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 - concern for drug use today - will do utox, ua, cbc, cmp, head ct, alcohol, salicylates, acetominophen, will reassess 07/22/20 22:00 07/22/20 22:01 reassess: labs wnl patient is seen to be ambulating around ER with normal gait he is currently A&Ox3 His neurological exam is benign patient expresses wish to leave will dc patient back to [facility] 07/22/20 22:07 Discharge - Discharge Information Problems reviewed: Yes Clinical Impression/Diagnosis: Drug use disorder, Sleep deprivation Condition: Stable - Admission No - Follow up/Referral - Patient Discharge Instructions Patient Printed Discharge Instructions: Substance Use Disorder Additional Instructions: You were sent to the ER from your drug rehab facility [facility] because your were found to have altered mentation. Upon arriving to the ER you received labs. We ordered urine analysis, urine toxicology, and head CT however you expressed a wish to leave the ER before the urine results could come back. We did not perform the CT scan based on your wished. Your other labs were drawn, analyzed and found to be unremarkable. Altered mental status is a change in how well your brain is working. As a result, you may be confused, be less alert than usual, or act in odd ways. This may include seeing or hearing things that aren't really there (hallucinations). A mental status change has many possible causes. For example, it may be the result of an infection, an imbalance of chemicals in the body, or a chronic disease such as diabetes or COPD. It can also be caused by things such as a head injury, taking certain medicines, or using alcohol or drugs. The doctor may do tests to look for the cause. These tests may include urine tests, blood tests, and imaging tests such as a CT scan. Sometimes a clear cause isn't found. But tests can help the doctor rule out a serious cause of your symptoms. A change in mental status can be scary. But mental status will often return to normal when the cause is treated. So it is important to get any follow-up testing or treatment the doctor has suggested. The doctor has checked you carefully, but problems can develop later. If you notice any problems or new symptoms, get medical treatment right away. Follow-up care is a giles part of your treatment and safety. Be sure to make and go to all appointments, and call your doctor or nurse call line if you are having problems. It's also a good idea to know your test results and keep a list of the medicines you take. How can you care for yourself at home? Be safe with medicines. Take your medicines exactly as prescribed. Call your doctor or nurse call line if you think you are having a problem with your medicine. Have another adult stay with you until you are better. This can help keep you safe. Ask that person to watch for signs that your mental status is getting worse. When should you call for help? Call 911 anytime you think you may need emergency care. For example, call if: You passed out (lost consciousness). Your mental status is getting worse. You have new symptoms, such as a fever, chills, or shortness of breath. You do not feel safe. Watch closely for changes in your health, and be sure to contact your doctor or nurse call line if: You do not get better as expected. - Post Discharge Activity
--- NOTE | 2020-07-22 19:35 | PDOC ---
Attending Attestation - Resident Resident Name: Tirso Mckenzie - ED Attending Attestation I have performed the following: I have examined & evaluated the patient, The case was reviewed & discussed with the resident, I agree w/resident's findings & plan - HPI HPI: 07/22/20 21:12 Pt was sent from [facility] because he was altered MS; pt appears to be "tripping" on drugs. He denies drug use, but is somnolent, completely arousable. States that he has not slept and that he is tired. But at the same time, pt refuses to sleep in bed and he rips off his monitor wires, and he is stabding in his room waiting to go back to [facility]. Pt has no complaints. Pt has normal vitals. - Physicial Exam PE: 07/22/20 21:53 Normal exam. Minimal wheeze patchy bilaterally. Heart normal abd soft NT ND no flank pain ext normal skin normal no rashes afebrile VSS HEENT normal also - Medical Decision Making 07/22/20 21:12 CBC is normal 07/22/20 21:53 All labs normal. Pt can go back to [facility]. Heart Score/ECG Review - ECG Intrepretation Rhythm: Regular Rhythm - [place] R[place]el: Right [place] Deviation - P and AR Delta Wave(s) Present: No WPW: No - QRS Widened: RBBB (SAME OLD PATTERN FROM APRIL 2019) Poor R Wave Progression: No Q Wave Present: No - ST and T Early Repolarization: No Non Specific ST-T Wave changes: No Flattened T Waves: No Prolonged Q-T Interval: No - ECG Impressions Normal ECG: Yes Non-specific ST Elevation: No Ischemic Changes: No Bradycardia: No Discharge - Discharge Information Problems reviewed: Yes Clinical Impression/Diagnosis: Drug use disorder, Sleep deprivation - Follow up/Referral - Patient Discharge Instructions - Post Discharge Activity
--- OUTSIDE RECORDS SUMMARY | 2020-07-22 19:48 | XMS ---
:1980 Author Organization [facility] Care Team Providers Name Role Phone [...] is protected by Article 27-F of the [facility] Public Health law. If you continue you may haveaccess to information: Regarding HIV / AIDS; Provided by facilities licensed or operated by the [facility] Office of Mental Health; or Provided by the [facility] Office for People With Developmental Disabilities. If such information is present, then the following [facility] mandated warning applies: This information has been [...] law may result in a fine or prison sentence or both. A general authorization for the release of medical or other information is NOT sufficient authorization for further disclosure. Allergies and Adverse Reactions Type Description Substance Reaction Status Data Source(s ) Drug allergy No Known Allergies No Known Allergies [facility] Drug allergy No Known Allergies No Known Allergies [facility] Encounters Encounter Providers Location Date Indications Data Source(s ) Emergency Attender: [facility] 07/09/2019 Laci Concepcion MDAttender: 01:28:00 PM EDT P [facility] ERAdmitter: [facility] - 07/09/2019 Ovidio Kahn MD 04:14:00 PM EDT Patient discharged. Medications Medication Brand Start Product Dose Route Administrative Pharmacy [facility] Indications Reaction Description Data Name Date Form Instructions Instructions Source(s) Prednisone predni 20.0 Oral Nuvan ce 20 MG Oral SONE 2019 mg 20 mg, = 1 tab, Oral, Daily, X 7 day(s), # 7 tab, 0 Refill(s), Pharmacy: [facility], 1 tab Oral Daily,x7 day(s) Health - Tablet 20 mg 04:02: [place] predniSONE oral 00 PM Hospital 20 mg oral tablet EDT Center tablet ProAir HFA [id number] 07/09/ Aerosol 2.0 Inhala [place] 90 mcg/inh 2019 tion 2 p uff(s), INH, q4hr, # 8.5 gm, 0 Refill(s), as needed for wheezing, Pharmacy: [facility], 2 puff(s) INH q4hr,PRN:as needed for wheezing Health - inhalation 04:02: [place] aerosol 00 PM [facility] EDT Center Clarithromy clarit 07/09/ 500.0 Oral Nuv [place] debra 500 MG hromyc 2019 mg 50 0 mg, = 1 tab, Oral, q12hr (specified start), X 10 day(s), # 20 tab, 0 Refill(s), Pharmacy: [facility], 1 tab Oral q12hr (specified start),x10 day(s) Health - Oral Tablet in 500 04:02: [place] am clarithromy mg 00 PM [facility]osp[facility] debra 500 mg oral EDT Center oral tablet tablet Insurance Providers Payer name Policy type Policy ID Covered Covered alliance party's Policy P sal / Coverage alliance party ID relationship to Almaraz Inf ormation type [facility] [id number] MEDICARE MEDICAID [id number] SP [id number] UYEN MEDICARE [id number] SP [id number] [employer] [id number] SP [id number] MEDICARE Results ID Date Data Source [id number] 07/04/2020 12:00:00 AM EDT [facility] Name Value Range Interpretation Code Description Data Sulma rce(s) Supporting Document(s ) 2019-nCoV [facility] RNA XXX LAMBERT+probe- Imp This [facility] and reported by [employer] ID Date Data Source [id number] 07/09/2019 03:22:00 PM EDT [facility] Name Value Range Interpretation Description Data Sup porting Code Source(s) Document(s ) UA Color Yellow NO [facility] UA Appear Clear NO [facility] UA pH 5.0-8.0 NO [facility] UA Spec Grav 1.022 1.005-1.030 NO [facility] UA Glucose Negative NO [facility] UA Ketones Negative NO [facility] UA Urobilinogen 0.2-1.0 NO [facility] UA Bili Negative NO [facility] UA Blood Negative NO [facility] UA Protein Negative NO [facility] UA Nitrite Negative NO [facility] UA Leuk Est Negative NO [facility] ID Date Data Source [id number] 07/11/2019 10:00:00 AM EDT [facility] 02/19/ Microbiology - Respiratory CulturesPROCE DURE: Culture,Throat, [...] Supporting Document(s ) ID Date Data Source [id number] [facility] Value Range Interpretation Description Data Sup porting Code Source(s) Document(s ) Lactic 2.0 0.9-2.0 NO [place] Acid Lvl mmol/L [facility] ID Date Data Source [id number] 07/09/2019 03:31:00 PM T [facility] Name Value Range Interpretation Description Data Sup porting Code Source(s) Document(s ) Troponin- <0.01 0.02-0.05 LO [place] I ng/mL [facility] ID Date Data Source [id number] 07/09/2019 03:28:00 PM T [facility] Added by Discern Rule GLB_ADD_GFR_CMP Name Value Range Interpretation Code Description Data Sulma rce(s) Supporting Document(s ) eGFR-AA >60 >=60 NO [facility] mL/min/[address] eGFR-LAMBERT >60 >=60 NO [facility] mL/min/[address] ID Date Data Source [id number] 07/09/2019 03:28:00 PM [facility] Name Value Range Interpretation Description Data Sup porting Code Source(s) Document(s ) Magnesium 2.2 mg/dL 1.6-2.5 NO [facility] ID Date Data Source [id number] 07/09/2019 03:28:00 PM [facility] Name Value Range Interpretation Code Description Data Sulma rce(s) Supporting Document(s ) Lipase Lvl 21 IU/L 10-59 NO [facility] ID Date Data Source [id number] 07/09/2019 03:28:00 PM EDT [facility] Name Value Range Interpretation Description Data Sup porting Code Source(s) Document(s ) Glucose Lvl 135 65-99 HI [place] mg/dL [facility] BUN 13.0 7.0-21.0 NO [place] mg/dL [facility] Creatinine 1.09 0.70-1.2 NO [place] mg/dL 0 [facility] BUN/Creat 11.9 7.0-29.0 NO [place] Ratio ratio [facility] Sodium Lvl 138 136-146 NO [place] mmol/L [facility] Potassium Lvl 4.2 3.5-5.1 NO [place] mmol/L [facility] Chloride 100 98-109 NO [place] mmol/L [facility] CO2 32 17-33 NO [place] mmol/L [facility] AGAP 6 5-15 NO [facility] Calcium Lvl 8.7 8.3-10.2 NO [place] mg/dL [facility] Total Protein 6.8 6.0-8.3 NO [place] gm/dL [facility] Albumin Lvl 3.6 3.7-5.3 LO [place] gm/dL [facility] Glob 3.2 2.0-4.5 NO [place] gm/dL [facility] A/G Ratio 1.1 1.0-2.2 NO [place] ratio [facility] Bili Total 0.2 0.4-1.1 LO [place] mg/dL [facility] Alk Phos 57 IU/L 30-125 NO [facility] AST 26 IU/L 10-35 NO [facility] ALT 23 IU/L 8-40 NO [facility] ID Date Data Source [id number] 07/09/2019 03:23:00 PM EDT [facility] Name Value Range Interpretation Code Description Data Sulma rce(s) Supporting Document(s ) Rapid Negative [facility] Strep [facility] Internal QC is Valid.07/09/2019 15:22:59 EDTMDTest methodology is Lateral flow immunoassay for the qualitative detectio n of Strep. A antigen. Findings must be correlated with clinical history. Negati ve results and persistence of clinical symptoms should be followed up with cult ure. ID Date Data Source [id number] 07/09/2019 03:04:00 PM EDT [facility] Name Value Range Interpretation Description Data Sup porting Code Source(s) Document(s ) Neut Auto 73.6 % 40.0-70.0 HI [facility] Lymph Auto 15.5 % 22.0-44.0 LO [facility] [place] Auto 9.3 % 4.0-11.0 [facility] Eos Auto 1.5 % 0.0-8.0 NO [facility] Baso Auto 0.1 % 0.0-3.0 [facility] Neut 10.6 1.8-7.7 HI [place] Absolute x10(3)/[facility] Lymph 2.2 1.0-4.8 NO [place] Absolute x10(3)/[facility] [place] 1.3 0.2-1.2 HI [place] Absolute x10(3)/[facility] Eos Absolute 0.2 0.0-0.9 NO [place] x10(3)/[facility] Baso 0.0 0.0-0.3 NO [place] Absolute x10(3)/[facility] ID Date Data Source [id number] 07/09/2019 03:04:00 PM EDT [facility] Name Value Range Interpretation Description Data Sup porting Code Source(s) Document(s ) WBC 14.5 4.5-11.0 HI [place] x10(3)/[facility] RBC 3.49 4.50-5.90 LO [place] x10(6)/[facility] Hgb 11.4 13.5-17.5 LO [place] gm/dL [facility] Hct 33.8 % 41.0-53.0 LO [facility] MCV 97 fL 80-100 NO [facility] MCH 32.8 pg 26.0-34.0 NO [facility] MCHC 33.8 31.0-37.0 NO [place] gm/dL [facility] RDW 14.2 % 11.5-14.5 NO [facility] Platelet 205 150-350 [facility] MPV 7.1 fL 7.4-10.4 [facility] Procedure Social History Code Duration Value Status Description Data Source(s ) Smoking 07/09/2019 Occasional completed Occasional tobacco [facility] - 02:12:49 PM EDT tobacco smoker smoker (finding) [facility] (finding) Center Vital Signs ID Date Data Source UNK Name Value Range Interpretation Code Description Data Source(s) Oral temperature 98.0 [degF] 96.4-99.1 Normal (applies to 98.0 [degF ] [facility] [employer] DegF non-numeric results) - [facility] Mean blood 72 mm[Hg] 72 mm[Hg] [facility] [employer] pressure by - [facility] Heart rate 72 bpm 60-100 bpm Normal (applies to 72 bpm [facility] non-numeric results) - [facility] Respiratory rate 13 br/min 14-20 Below low normal 13 br/min [facility] br/min - [facility] Oxygen saturation 92 % 94-100 % 92 % [facility] [employer] in Blood [facility] Postductal by Hospital Pulse oximetry Center Diastolic blood 51 mm[Hg] 60-90 mmHg 51 mm[Hg] [facility] pressure - [facility] Systolic blood 115 mm[Hg] 90-130 mmHg Normal (applies to 115 mm[Hg] [facility] pressure non-numeric results) - [facility] Rectal 98.1 [degF] 97.3-100 Normal (applies to 98.1 [degF] [facility] temperature DegF non-numeric results) - [facility] Heart rate 62 bpm 60-100 bpm Normal (applies to 62 bpm [facility] non-numeric results) - [facility] Oxygen therapy [place] [facility] [Minimum Data - [place] Set] [facility] [place] Oral temperature 98.8 [degF] 96.4-99.1 Normal (applies to 98.8 [degF ] [facility] DegF non-numeric results) - [facility] Respiratory rate 18 br/min 14-20 Normal (applies to 18 br/min [facility] br/min non-numeric results) - [facility] Oxygen saturation 96 % 94-100 % Normal (applies to 96 % [facility] in Blood non-numeric results) - [facility] Postductal by Hospital Pulse oximetry Center Heart rate 77 bpm 60-100 bpm Normal (applies to 77 bpm [facility] non-numeric results) - [facility] Diastolic blood 66 mm[Hg] 60-90 mmHg Normal (applies to 66 mm[Hg] [facility] pressure non-numeric results) - [facility] Systolic blood 115 mm[Hg] 90-130 mmHg Normal (applies to 115 mm[Hg] [facility] pressure non-numeric results) - [facility] Oral temperature 99.1 [degF] 96.4-99.1 Normal (applies to 99.1 [degF ] [facility] DegF non-numeric results) - [facility] Diastolic blood 60 mm[Hg] 60-90 mmHg Normal (applies to 60 mm[Hg] [facility] pressure non-numeric results) - [facility] Systolic blood 109 mm[Hg] 90-130 mmHg Normal (applies to 109 mm[Hg] [facility] pressure non-numeric results) - [facility] Respiratory rate 16 br/min 14-20 Normal (applies to 16 br/min [facility] br/min non-numeric results) - [facility] Oxygen therapy [facility] [Minimum Data - [place] Set] [facility] Center Oxygen saturation 96 % 94-100 % Normal (applies to 96 % [facility] in Blood non-numeric results) - [facility] Postductal by Hospital Pulse oximetry Center Body mass index 25.34 kg/m2 25.34 kg/m2 [facility] (BMI) [Ratio] - [facility] Body height 165 cm 165 cm [facility] - [facility] Body mass index 25.34 kg/m2 25.34 kg/m2 [facility] (BMI) [Ratio] - [facility] Body weight 69 kg 69 kg [facility] Measured - [facility] Patient Treatment Plan of Care Planned Activity Planned Date Details Description Data Source (s) ProAir HFA 90 mcg/inh 07/09/2019 [facility]02[facility] Prednisone 20 MG Oral 07/09/2019 04:02:00 [facility] Clarithromycin 500 MG Oral 07/09/2019 04:02:00 [facility]
[2020-07-22 20:57] VITALS: BP 120/78; PULSE 79; TEMP 98.9; BMI 25.7
[2020-07-22 21:00] LABS: BASO % 0.3 % (0-2.0); EOS % 3.9 % (0-4.5); HEMATOCRIT 36.5 % (35.4-49); HEMOGLOBIN 12.4 GM/dL (11.7-16.9); MCH 33.2 pg (25.7-33.7); MEAN CELL VOLUME 97.5 fl (80-96); MEAN PLT VOLUME 7.3 fl (7.5-11.1); MONO % 10.8 % (3.8-10.2); PLATELET COUNT 215 K/MM3 (134-434); RBC 3.75 M/mm3 (4.00-5.60); RDW 13.8 % (11.9-15.9); WHITE BLOOD COUNT 8.8 K/mm3 (4.0-10.0)
[2020-07-22 21:38] LABS: ALK PHOS 80 U/L (45-117); ANION GAP 6 MMOL/L (8-16); BILIRUBIN,TOTAL 0.1 mg/dL (0.2-1); CALCIUM 9.2 mg/dL (8.5-10.1); CHLORIDE 103 mmol/L (98-107); CO2 31 mmol/L (21-32); CREATININE 1.1 mg/dL (0.55-1.3); GLUCOSE,RANDOM 103 mg/dL (74-106); POTASSIUM 4.5 mmol/L (3.5-5.1); SGOT/AST 26 U/L (15-37); SGPT/ALT 38 U/L (13-61); SODIUM 141 mmol/L (136-145); TOT PROT 7.9 g/dl (6.4-8.2)
[2020-07-22 22:30] LABS: URINE APPEARANCE CLEAR; URINE BILIRUBIN NEGATIVE (NEGATIVE); URINE COLOR YELLOW; URINE GLUCOSE (UA) NEGATIVE (NEGATIVE); URINE KETONE NEGATIVE (NEGATIVE); URINE LEUK ESTERASE NEGATIVE (NEGATIVE); URINE NITRITE NEGATIVE (NEGATIVE); URINE PROTEIN NEGATIVE (NEGATIVE); URINE UROBILINOGEN 0.2 mg/dL (0.2-1.0)
[2020-07-22 22:35] LABS: OPIATES, URI NEGATIVE ng/ml (CUTOFF=300); PHENCYCLIDINE,URINE NEGATIVE ng/ml (CUTOFF=25); URINE BARBITURATES NEGATIVE ng/ml (CUTOFF=200)
[2020-07-22 22:41] LABS: URINE AMPHETAMINES NEGATIVE ng/ml (CUTOFF=500)
[2020-07-22 22:44] LABS: URINE BENZODIAZEPINES POSITIVE ng/ml (CUTOFF=200)
[2020-07-22 22:45] LABS: COCAINE, UR POSITIVE ng/ml (CUTOFF=300); METHADONE, UR POSITIVE ng/ml (CUTOFF=300)
--- NOTE | 2020-07-26 15:04 | EKG ---
Test Reason : Blood Pressure : / mmHG Vent. Rate : 065 BPM Atrial Rate : 065 BPM P-R Int : 140 ms QRS Dur : 136 ms QT Int : 434 ms P-R-T Axes : 013 015 016 degrees QTc Int : 451 ms NORMAL SINUS RHYTHM WITH SINUS ARRHYTHMIA RIGHT BUNDLE BRANCH BLOCK CANNOT RULE OUT INFERIOR INFARCT , AGE UNDETERMINED ABNORMAL ECG WHEN COMPARED WITH ECG OF 12-MAY-2019 10:24, NO SIGNIFICANT CHANGE WAS FOUND Confirmed by MD Dakota, Nic ([id number]) on 07/26/2020 3:04:20 PM Referred By: Confirmed By:Nic Duncan MD
== END 2020-07-23 00:41 ==
LOC: JER 18:54
DX: Z72.820 Sleep deprivation (principal)
CPT/HCPCS: 36415; 80053; 80307; 81003; 85025; 93005; 93010; 99285-25

== ENCOUNTER 2023-06-06 12:48 | Inpatient (IN) | payer OTHER ==
[2023-06-06 14:14] VITALS: BMI 22.6
[2023-06-06] MEDS ORDERED: MAGNESIUM HYDROX 2400MG/30ML ORAL SUSPENSION 30 ML CUP PO PRN (16:05)
[2023-06-06] MEDS ORDERED: LOPERAMIDE HCL 2 MG CAPSULE PO PRN (16:05)
[2023-06-06] MEDS ORDERED: BENZONATATE 200 MG CAPSULE PO PRN (16:05)
[2023-06-06] MEDS ORDERED: BENZOCAINE/MENTHOL (CHLORASEPTIC ) LOZENGE MM PRN (16:05)
[2023-06-06] MEDS ORDERED: AMMONIUM LACTATE 12% LOTION 225 GM BOTTLE TP PRN (16:05)
[2023-06-06] MEDS ORDERED: MAG HYDROX/AL HYDROX/SIMETH 30 ML UNIT-DOSE CUP PO PRN (16:05)
[2023-06-06] MEDS ORDERED: NALOXONE HCL (KLOXXADO) 8 MG SPRAY NS PRN (16:05)
[2023-06-06] MEDS ORDERED: NALOXONE HCL 0.4 MG/ML VIAL IM PRN (16:05)
[2023-06-06] MEDS ORDERED: POLYETHYLENE GLYCOL (HEALTHYLAX) 3350 17 GM PACKET PO PRN (16:05)
[2023-06-06] MEDS ORDERED: guaiFENesin 600 MG TABLET.ER (FP) PO PRN (16:05)
[2023-06-06] MEDS ORDERED: IBUPROFEN 600 MG TABLET (FP) PO PRN (16:05)
[2023-06-06] MEDS ORDERED: NICOTINE POLACRILEX 2 MG GUM BUC PRN (16:05)
[2023-06-06] MEDS ORDERED: IBUPROFEN 400 MG TABLET (FP) PO PRN (16:05)
[2023-06-06] MEDS ORDERED: P-EPHED 60MG/TRIPROLIDI 2.5MG TABLET PO PRN (16:05)
[2023-06-06] MEDS ORDERED: ACETAMINOPHEN 325 MG TABLET (FP) PO PRN (16:05)
[2023-06-06] MEDS: THIAMINE HCL 100 MG TABLET (FP) PO SCH (21:38)
[2023-06-06] MEDS ORDERED: TUBERCULIN PPD 5 TU/0.1ML VIAL ID ONE (21:49)
[2023-06-06] MEDS ORDERED: MELATONIN 5 MG TABLETS PO SCH (22:00)
[2023-06-07] MEDS ORDERED: methaDONE HCL 10 MG TABLET PO SCH (09:15)
[2023-06-07] MEDS: PRENATAL VITAMINS W/ FOLIC ACID TABLET (FP) PO SCH (09:25)
[2023-06-07] MEDS: methaDONE 40 MG, methaDONE 20 MG PO SCH (09:25)
[2023-06-07 10:25] LABS: POTASSIUM 4.4 mmol/L (3.5-5.1)
[2023-06-07 10:26] LABS: CALCIUM 8.5 mg/dL (8.5-10.1)
[2023-06-07 10:28] LABS: ALBUMIN 3.2 g/dl (3.4-5.0); BLOOD UREA NITROGEN 15.4 mg/dL (7-18)
[2023-06-07 10:30] LABS: CREATININE 0.9 mg/dL (0.55-1.3)
[2023-06-07 10:32] LABS: TOT PROT 6.3 g/dl (6.4-8.2)
[2023-06-07 10:33] LABS: BILIRUBIN,TOTAL 0.1 mg/dL (0.2-1)
[2023-06-07 10:37] LABS: HEMATOCRIT 38.7 % (35.4-49); HEMOGLOBIN 12.5 GM/dL (11.7-16.9); MCH 32.2 pg (25.7-33.7); MCHC 32.3 g/dl (32.0-35.9); MEAN CELL VOLUME 99.6 fl (80-96); MEAN PLT VOLUME 8.2 fl (7.5-11.1); PLATELET COUNT 224 10^3/uL (134-434); RBC 3.89 M/mm3 (4.00-5.60); RDW 14.6 % (11.9-15.9); WHITE BLOOD COUNT 7.9 K/mm3 (4.0-10.0)
[2023-06-07] MEDS: COLLOIDAL OATMEAL 1 BAR EACH TP PRN (10:47)
[2023-06-07 10:50] LABS: PH,URINE 8.5 (5.0-8.0); URINE APPEARANCE CLEAR; URINE BILIRUBIN NEGATIVE (NEGATIVE); URINE COLOR YELLOW; URINE GLUCOSE (UA) NEGATIVE (NEGATIVE); URINE KETONE NEGATIVE (NEGATIVE); URINE LEUK ESTERASE NEGATIVE (NEGATIVE); URINE NITRITE NEGATIVE (NEGATIVE); URINE PROTEIN NEGATIVE (NEGATIVE); URINE UROBILINOGEN 0.2 mg/dL (0.2-1.0)
[2023-06-07] MEDS: THIAMINE HCL 100 MG TABLET (FP) PO SCH (21:37)
[2023-06-07] MEDS: traZODone HCL 100 MG TABLET (FP) PO SCH (21:37)
[2023-06-08] MEDS: methaDONE 40 MG, methaDONE 20 MG PO SCH (06:59)
[2023-06-08] MEDS: PRENATAL VITAMINS W/ FOLIC ACID TABLET (FP) PO SCH (09:54)
[2023-06-08] MEDS: THIAMINE HCL 100 MG TABLET (FP) PO SCH (21:36)
[2023-06-08] MEDS: traZODone HCL 100 MG TABLET (FP) PO SCH (21:36)
[2023-06-09] MEDS: methaDONE 40 MG, methaDONE 20 MG PO SCH (06:47)
[2023-06-09] MEDS: PRENATAL VITAMINS W/ FOLIC ACID TABLET (FP) PO SCH (09:44)
[2023-06-09] MEDS ORDERED: ONDANSETRON *ODT* 4 MG TABLET SL PRN (11:04)
[2023-06-09] MEDS: TOLNAFTATE 1% CREAM 15 GM TUBE TP SCH ×2 (11:50→21:56)
[2023-06-09] MEDS: THIAMINE HCL 100 MG TABLET (FP) PO SCH (21:54)
[2023-06-09] MEDS: traZODone HCL 100 MG TABLET (FP) PO SCH (21:54)
[2023-06-10] MEDS: methaDONE 40 MG, methaDONE 20 MG PO SCH (07:39)
[2023-06-10] MEDS: PRENATAL VITAMINS W/ FOLIC ACID TABLET (FP) PO SCH (10:50)
[2023-06-10] MEDS: TOLNAFTATE 1% CREAM 15 GM TUBE TP SCH ×2 (10:51→21:45)
[2023-06-10] MEDS: COLLOIDAL OATMEAL 1 BAR EACH TP PRN (10:52)
[2023-06-10] MEDS: THIAMINE HCL 100 MG TABLET (FP) PO SCH (21:44)
[2023-06-10] MEDS: traZODone HCL 100 MG TABLET (FP) PO SCH (21:44)
[2023-06-11] MEDS: methaDONE 40 MG, methaDONE 20 MG PO SCH (06:33)
[2023-06-11] MEDS: PRENATAL VITAMINS W/ FOLIC ACID TABLET (FP) PO SCH (10:26)
[2023-06-11] MEDS: TOLNAFTATE 1% CREAM 15 GM TUBE TP SCH ×2 (10:26→21:44)
[2023-06-11] MEDS: traZODone HCL 100 MG TABLET (FP) PO SCH (21:44)
[2023-06-11] MEDS: THIAMINE HCL 100 MG TABLET (FP) PO SCH (21:46)
[2023-06-12] MEDS: methaDONE 40 MG, methaDONE 20 MG PO SCH (06:52)
[2023-06-12] MEDS: TOLNAFTATE 1% CREAM 15 GM TUBE TP SCH ×2 (09:30→21:11)
[2023-06-12] MEDS: PRENATAL VITAMINS W/ FOLIC ACID TABLET (FP) PO SCH (09:30)
[2023-06-12] MEDS: COLLOIDAL OATMEAL 1 BAR EACH TP PRN (18:18)
[2023-06-12] MEDS: THIAMINE HCL 100 MG TABLET (FP) PO SCH (21:10)
[2023-06-12] MEDS ORDERED: traZODone HCL 100 MG TABLET (FP) PO SCH (22:00)
[2023-06-13] MEDS: methaDONE 40 MG, methaDONE 20 MG PO SCH (06:51)
[2023-06-13] MEDS: PRENATAL VITAMINS W/ FOLIC ACID TABLET (FP) PO SCH (10:17)
[2023-06-13] MEDS: TOLNAFTATE 1% CREAM 15 GM TUBE TP SCH ×2 (10:18→21:21)
[2023-06-13] MEDS: hydrOXYzine PAMOATE 25 MG CAPSULE (FP) PO PRN ×2 (12:46→21:21)
[2023-06-13] MEDS: INSULIN SLIDING SCALE (NOVOLOG) 1 VIAL SQ SCH (16:35)
[2023-06-13] MEDS: THIAMINE HCL 100 MG TABLET (FP) PO SCH (21:20)
[2023-06-13] MEDS: traZODone HCL 100 MG, traZODone HCL 50 MG PO SCH (21:20)
[2023-06-13] MEDS ORDERED: traZODone HCL 100 MG TABLET (FP) PO SCH (22:00)
[2023-06-13] MEDS ORDERED: MELATONIN 5 MG TABLETS PO PRN (22:00)
[2023-06-14] MEDS: methaDONE 40 MG, methaDONE 20 MG PO SCH (06:35)
[2023-06-14] MEDS: INSULIN SLIDING SCALE (NOVOLOG) 1 VIAL SQ SCH ×2 (06:36→17:11)
[2023-06-14] MEDS: PRENATAL VITAMINS W/ FOLIC ACID TABLET (FP) PO SCH (09:29)
[2023-06-14] MEDS: TOLNAFTATE 1% CREAM 15 GM TUBE TP SCH ×2 (09:29→21:16)
[2023-06-14] MEDS: COLLOIDAL OATMEAL 1 BAR EACH TP PRN (12:35)
[2023-06-14] MEDS: THIAMINE HCL 100 MG TABLET (FP) PO SCH (21:16)
[2023-06-14] MEDS: traZODone HCL 100 MG, traZODone HCL 50 MG PO SCH (21:17)
[2023-06-15] MEDS: methaDONE 40 MG, methaDONE 20 MG PO SCH (06:25)
[2023-06-15] MEDS: INSULIN SLIDING SCALE (NOVOLOG) 1 VIAL SQ SCH ×2 (06:26→16:39)
[2023-06-15] MEDS: PRENATAL VITAMINS W/ FOLIC ACID TABLET (FP) PO SCH (09:49)
[2023-06-15] MEDS: TOLNAFTATE 1% CREAM 15 GM TUBE TP SCH ×2 (09:49→21:05)
[2023-06-15] MEDS: traZODone HCL 100 MG, traZODone HCL 50 MG PO SCH (21:05)
[2023-06-15] MEDS: THIAMINE HCL 100 MG TABLET (FP) PO SCH (21:05)
[2023-06-16] MEDS: methaDONE 40 MG, methaDONE 20 MG PO SCH (06:18)
[2023-06-16] MEDS: INSULIN SLIDING SCALE (NOVOLOG) 1 VIAL SQ SCH (06:21)
[2023-06-16] MEDS ORDERED: INSULIN (NOVOLOG) ASPART 100 UNITS/ML 10ML VIAL ONE (06:22)
[2023-06-16 06:24] VITALS: BP 103/69; PULSE 73; RESP 16; TEMP 98.2
[2023-06-16] MEDS: PRENATAL VITAMINS W/ FOLIC ACID TABLET (FP) PO SCH (09:39)
[2023-06-16] MEDS: TOLNAFTATE 1% CREAM 15 GM TUBE TP SCH (09:40)
[2023-06-16] MEDS: hydrOXYzine PAMOATE 25 MG CAPSULE (FP) PO PRN (09:40)
== END 2023-06-16 13:05 | disposition left against medical advice (07) | DRG 894 ==
LOC: YASAS 12:48 → Y3E 16:05
PROVIDERS: ADMIT Allergy & Immunology; ATTEND Psychiatry & Neurology Pain Medicine
PROC: HZ42ZZZ Group Counseling for Substance Abuse Treatment, Cognitive-Behavioral (ICD-10-PCS; principal; 2023-06-06)
DX: F14.20 Cocaine dependence, uncomplicated (principal); F11.20 Opioid dependence, uncomplicated; F19.282 Other psychoactive substance dependence with psychoactive substance-induced sleep disorder; F12.20 Cannabis dependence, uncomplicated; F17.210 Nicotine dependence, cigarettes, uncomplicated; F19.24 Other psychoactive substance dependence with psychoactive substance-induced mood disorder; F41.9 Anxiety disorder, unspecified; F32.A Depression, unspecified; B35.1 Tinea unguium; R63.4 Abnormal weight loss; Z68.22 Body mass index [BMI] 22.0-22.9, adult; Z86.59 Personal history of other mental and behavioral disorders
CPT/HCPCS: 36415; 80053; 81003; 82962; 85027; 86780; 87635; 87811; 93005; 93010